=== PATIENT | male | born 1985 | race Caucasian/White ===

== ENCOUNTER 2017-09-15 08:10 | Emergency (ER) | payer BC ==
[2017-09-15] MEDS ORDERED: KETOROLAC 30 MG/ML 1 ML VIAL IM STA (08:25)
[2017-09-15] MEDS ORDERED: DIAZEPAM 5 MG/ML 2 ML INJ IM ONE (08:25)
--- NOTE | 2017-09-15 08:30 | ED ---
General Adult HPI - General Chief complaint: Back Pain/Injury Stated complaint: Back Injury Time Seen by Provider: 09/15/17 08:22 Source: patient, RN notes reviewed, old records reviewed Mode of arrival: ambulatory Limitations: no limitations - History of Present Illness Initial comments: 32-year-old male presenting with right-sided low back pain. Patient has had pain similar to this in the past which was associated with a heavy lifting injury. He states he does not have pain at baseline. No history of chronic back pain. He was wrestling with his dog yesterday and developed this right- sided back pain. No specific fall or trauma. His had worsening pain over the past 12 hours. He did take 600 mg Motrin with minimal relief. Denies any difficulty urinating denies any sensory changes to the lower extremities. He denies weakness in the legs, does state that the pain is worse with standing. No loss of stool or urinary incontinence. - Related Data Home Medications Medication Instructions Recorded Confirmed Ibuprofen [Motrin Ib] 600 mg PO ONCE PRN 09/15/17 09/15/17 Previous Rx's Medication Instructions Recorded Ibuprofen [Motrin] 600 mg PO Q8HR PRN #24 tab 09/15/17 Allergies Allergy/AdvReac Type Severity Reaction Status Date / Time No Known Allergies Allergy Verified 09/15/17 08:38 Review of Systems ROS Statement: Those systems with pertinent positive or pertinent negative responses have been documented in the HPI. ROS Other: All systems not noted in ROS Statement are negative. Past Medical History Past Medical History: No Reported History History of Any Multi-Drug Resistant Organisms: None Reported Past Surgical History: No Surgical Hx Reported Past Psychological History: No Psychological Hx Reported Smoking Status: Current every day smoker Past Alcohol Use History: None Reported Past Drug Use History: None Reported General Exam Limitations: no limitations General appearance: alert, in no apparent distress Head exam: Present: atraumatic, normocephalic Eye exam: Present: normal appearance, PERRL ENT exam: Present: normal exam Neck exam: Present: normal inspection. Absent: tenderness Respiratory exam: Present: normal lung sounds bilaterally, respiratory distress Cardiovascular Exam: Present: regular rate, normal rhythm GI/Abdominal exam: Present: soft. Absent: distended, tenderness Extremities exam: Present: normal inspection, normal capillary refill. Absent: pedal edema, calf tenderness Back exam: Present: paraspinal tenderness (Right lumbar paravertebral tenderness and muscle spasm). Absent: vertebral tenderness Neurological exam: Present: alert, oriented X3, CN II-XII intact, motor sensory deficit (No sensory changes in the lower extremities, no saddle anesthesia), reflexes normal (2+ patellar reflexes bilaterally) Psychiatric exam: Present: normal affect, normal mood Skin exam: Present: warm, dry, intact. Absent: cyanosis, diaphoretic Course Vital Signs 09/15/17 09/15/17 08:16 09:21 Temperature 97.6 F 97.8 F Pulse Rate 71 72 Respiratory 18 16 Rate Blood Pressure 143/85 127/56 O2 Sat by Pulse 100 98 Oximetry Medical Decision Making - Medical Decision Making 32-year-old male with signs and symptoms of low back strain. X-rays obtained, there is no fracture or acute process. Patient is able to move without difficulty. No alarming features on history or physical exam. He will be prescribed anti-inflammatories and he is given outpatient follow-up. Disposition Clinical Impression: Mechanical back pain, Strain of lumbar region Disposition: HOME SELF-CARE Condition: Good Instructions: Acute Low Back Pain (ED) Prescriptions: Ibuprofen [Motrin] 600 mg PO Q8HR PRN #24 tab PRN Reason: Pain Is patient prescribed a controlled substance at d/c from ED?: No Referrals: None,Stated [Primary Care Provider] - 1-2 days Brianna Read MD [REFERRING] - 1-2 days Time of Disposition: 09:55
--- NOTE | 2017-09-15 09:45 | XR ---
EXAMINATION TYPE: XR lumbar spine 2 or 3V DATE OF EXAM: 09/15/2017 CLINICAL HISTORY: pain TECHNIQUE: Three views of the lumbar spine are submitted. COMPARISON: 08/12/2012 FINDINGS: There are 5 lumbar type vertebral bodies identified. Mild curvature convex to the left. The lumbar sp ine shows satisfactory alignment without evidence of acute fracture or dislocation. Vertebral body he ights are within normal limits. Disc spaces are within normal limits. The overlying soft tissue ap pears unremarkable. IMPRESSION: No acute fracture or dislocation is seen in the lumbar spine. ICD 10 NO FRACTURE, INITIAL EVALUATION
[2017-09-15 10:11] VITALS: BP 126/77; PULSE 80; RESP 20; TEMP 97.4
== END 2017-09-15 10:11 | disposition home or self-care (01) ==
LOC: EC 08:10
DX: S39.012A Strain of muscle, fascia and tendon of lower back, initial encounter (principal); F17.200 Nicotine dependence, unspecified, uncomplicated; X50.9XXA Other and unspecified overexertion or strenuous movements or postures, initial encounter; Y93.72 Activity, wrestling
CPT/HCPCS: 72100; 99284; 96372 ×2; J3360; J1885

== ENCOUNTER 2019-07-23 10:29 | Emergency (ER) | payer BC, OTHER ==
[2019-07-23 10:36] VITALS: RESP 18; TEMP 98.5
[2019-07-23] MEDS ORDERED: LIDOCAINE 1% INJ 10MG/ML (20 ML MDV) SQ ONE (10:41)
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
--- NOTE | 2019-07-23 11:29 | CT ---
EXAMINATION TYPE: CT facial bones wo con DATE OF EXAM: 07/23/2019 COMPARISON: None HISTORY: 34-year-old male with facial contusion, Facial Laceration TECHNIQUE: Contiguous axial scanning of the facial bones without IV contrast. Coronal reconstructions performed. CT DLP: 389.8 mGycm Automated exposure control for dose reduction was used. FINDINGS: Leftward nasal septal deviation. Paranasal sinuses and mastoid air cells are clear. The mandible, TMJ's, pterygoid plates, zygomatic arches, nasal bones, and maxilla remain intact. Orbits and globes are intact. Visualized intracranial structures show no gross abnormality IMPRESSION: NO ACUTE FACIAL BONE FRACTURE SEEN. LEFTWARD NASAL SEPTAL DEVIATION.
[2019-07-23 12:15] VITALS: BP 138/69; PULSE 72
== END 2019-07-23 12:16 | disposition home or self-care (01) ==
LOC: EC 10:29
DX: S01.81XA Laceration without foreign body of other part of head, initial encounter (principal); F17.200 Nicotine dependence, unspecified, uncomplicated; W22.8XXA Striking against or struck by other objects, initial encounter; Y99.0 Civilian activity done for income or pay
CPT/HCPCS: 70486; 99283; 12011; J2001

== ENCOUNTER 2019-11-02 07:26 | Emergency (ER) | payer BC, OTHER ==
[2019-11-02] MEDS ORDERED: RX INFO: IV CONTRAST WAS GIVEN 1 EACH MISC MISCELLANE PRN (07:39)
[2019-11-02] MEDS ORDERED: DIPH,PERTUS(ACELL)TETVAC-LF 0.5 ML VIAL IM ONE (07:41)
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
[2019-11-02 08:06] LABS: Basophils # (A) 0.1 k/uL (0-0.2); Basophils % (A) 1 %; Eosinophils # (A) 0.3 k/uL (0-0.7); Eosinophils % (A) 3 %; HCT 45.3 % (39.0-53.0); HGB 14.8 gm/dL (13.0-17.5); Lymphocytes # (A) 2.1 k/uL (1.0-4.8); Lymphocytes % (A) 20 %; MCH 30.4 pg (25.0-35.0); MCHC 32.6 g/dL (31.0-37.0); MCV 93.2 fL (80.0-100.0); Mean Platelet Volume 8.2; Monocytes # (A) 0.8 k/uL (0-1.0); Monocytes % (A) 7 %; Neutrophils % (A) 67 %; Platelet Count 260 k/uL (150-450); RBC 4.86 m/uL (4.30-5.90); RDW 12.9 % (11.5-15.5); WBC 10.5 k/uL (3.8-10.6)
[2019-11-02 08:13] LABS: Partial Thromboplastin Time 24.4 sec (22.0-30.0)
[2019-11-02 08:19] LABS: African American GFR (CKD) >90 (>60 ml/min/1.73 sqM); Anion Gap 6 mmol/L; Blood Urea Nitrogen 8 mg/dL (9-20); Calcium 9.2 mg/dL (8.4-10.2); Carbon Dioxide 27 mmol/L (22-30); Chloride 106 mmol/L (98-107); Glucose 106 mg/dL (74-99); Non-African American GFR(CKD) >90 (>60 ml/min/1.73 sqM); Potassium 3.7 mmol/L (3.5-5.1); Sodium 139 mmol/L (137-145)
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
[2019-11-02] MEDS ORDERED: LIDOCAINE 1%-EPI 1:100,000 20 ML VIAL SQ STA (09:09)
[2019-11-02 09:50] VITALS: BP 144/94; PULSE 94; RESP 18; TEMP 98.4
== END 2019-11-02 09:51 | disposition home or self-care (01) ==
LOC: EC 07:26
DX: S71.132A Puncture wound without foreign body, left thigh, initial encounter (principal); I72.4 Aneurysm of artery of lower extremity; F17.200 Nicotine dependence, unspecified, uncomplicated; W26.0XXA Contact with knife, initial encounter; Y92.69 Other specified industrial and construction area as the place of occurrence of the external cause; Y99.0 Civilian activity done for income or pay
CPT/HCPCS: 36415; 86900; 86901; 80048; 85025; 85610; 85730; 86850; 73706; 90715; 99283; 90471; Q9967

== ENCOUNTER 2022-07-13 09:00 | Emergency (ER) | payer OTHER ==
[2022-07-13 09:04] VITALS: BP 148/106; PULSE 102; RESP 20; TEMP 98.5
[2022-07-13] MEDS ORDERED: IBUPROFEN 600 MG STARTER PACK 4 TAB BTL PO STA (09:10)
[2022-07-13] MEDS ORDERED: ACET/COD 300 MG/30 MG STARTER PACK 6 TAB BTL PO STA (09:10)
--- NOTE | 2022-07-13 09:14 | ED ---
ENT HPI - General Chief complaint: Dental/Oral Stated complaint: facial edema Time Seen by Provider: 07/13/22 09:05 Source: patient, RN notes reviewed Mode of arrival: ambulatory Limitations: no limitations - History of Present Illness Initial comments: This is a 37-year-old male who presents to the emergency department for concerns of a dental abscess. He has started to have increasing pain to the bottom right of his jaw for the last several days. When he woke up this morning, he noticed swelling to that area. States that he has problems with his teeth and recurrent cavities. He has had a dental abscess in the past and states that this feels the same. Pain does improve with ibuprofen. Denies any difficulty breathing. He does not currently have a dentist. Denies any fevers, chills, sore throat, cough, dyspnea, chest pain, palpitations, abdominal pain, nausea, vomiting, diarrhea, back pain, or headaches. MD complaint: tooth pain - Related Data Home Medications Medication Instructions Recorded Confirmed Citalopram Hydrobromide [CeleXA] 40 mg PO DAILY 07/23/19 07/23/19 Previous Rx's Medication Instructions Recorded Cephalexin [Keflex] 500 mg PO Q6HR 5 Days #20 cap 11/02/19 Amoxic-Pot Clav 875-125Mg 1 tab PO BID 10 Days #20 tab 07/13/22 [Augmentin 875-125] Ibuprofen [Motrin] 600 mg PO Q6HR PRN #15 tab 07/13/22 Allergies Allergy/AdvReac Type Severity Reaction Status Date / Time No Known Allergies Allergy Verified 07/13/22 09:04 Review of Systems ROS Statement: Those systems with pertinent positive or pertinent negative responses have been documented in the HPI. ROS Other: All systems not noted in ROS Statement are negative. Past Medical History Past Medical History: No Reported History History of Any Multi-Drug Resistant Organisms: None Reported Past Surgical History: No Surgical Hx Reported Past Psychological History: No Psychological Hx Reported Smoking Status: Current every day smoker Past Alcohol Use History: Daily Past Drug Use History: None Reported General Exam Limitations: no limitations General appearance: alert, in no apparent distress Head exam: Present: atraumatic, normocephalic, normal inspection ENT exam: Present: other (Swelling to the right side of the lower jaw.) Neck exam: Present: normal inspection. Absent: tenderness, meningismus, lymphadenopathy Respiratory exam: Present: normal lung sounds bilaterally. Absent: respiratory distress, wheezes, rales, rhonchi, stridor Cardiovascular Exam: Present: regular rate, normal rhythm, normal heart sounds. Absent: systolic murmur, diastolic murmur, rubs, gallop, clicks Neurological exam: Present: alert, oriented X3, CN II-XII intact Psychiatric exam: Present: normal affect, normal mood Skin exam: Present: warm, dry, intact Course Vital Signs 07/13/22 09:02 Temperature 98.5 F Pulse Rate 102 H Respiratory 20 Rate Blood Pressure 148/106 O2 Sat by Pulse 98 Oximetry Medical Decision Making - Medical Decision Making This is a 37-year-old male who presents to the emergency department for dental pain. Was pt. sent in by a medical professional or institution? @ -No Did you speak to anyone other than the patient for history? @ -No Did you review nursing and triage notes? @ -Yes, and I agree, it is accurate with regards to the patient's symptoms. Were old charts reviewed? @ -No Differential Diagnosis? @ -Differential Dental Pain: Dental abscess, chipped tooth, dental carries, rodrigo's angina, trigeminal neuralgia, this is not meant to be an all-inclusive list. What testing was considered but not performed? (CT, X-rays, U/S, labs)? Why? @ -None What meds were considered but not given? Why? @ -None Did you discuss the management of the patient with other professionals? @ -No Did you reconcile home meds? @ -No Was smoking cessation discussed for >3mins.? @ -I discussed smoking cessation for greater than 3 minutes. The risk of smoking were discussed with the patient including but not limited to risks of cancer, stroke, coronary artery disease and COPD. Also discussed with patient were multiple methods of quitting smoking. Lastly we discussed the financial cost of smoking. Was critical care preformed (if so, how long)? @ -No Were there social determinants of health that impacted care today? How? (Homelessness, low income, unemployed, alcoholism, drug addiction, transportation, low edu. Level, literacy, decrease access to med. care, shelter, rehab)? @ -No Was there de-escalation of care discussed even if they declined? (Discuss DNR or withdrawal of care, Hospice)? @ -No What co-morbidities impacted this encounter? (DM, HTN, Smoking, COPD, CAD, Cancer, CVA, Hep., AIDS, mental health diagnosis, sleep apnea, morbid obesity)? @ -Smoking, alcohol use Was patient admitted / discharged? @ -Discharged. Physical examination consistent with a dental abscess. I am unable to palpate any specific areas that I can drain. Prescription for Augmentin and ibuprofen provided with dosing instructions reviewed. Advised to alternate with the ibuprofen and Tylenol. Patient is encouraged to stop smoking and we discussed that this will contribute to worsening dental health. Dental hygiene was also discussed and regular brushing was encouraged. He is instructed to become established with a dentist for definitive management of the abscess and multiple dental caries. Undiagnosed new problem with uncertain prognosis? @ -None Drug Therapy requiring intensive monitoring for toxicity (Heparin, Nitro, Insulin, Cardizem)? @ -None Were any procedures done? @ -None Diagnosis/symptom? @ -Dental Abscess Acute, or Chronic, or Acute on Chronic? @ -Acute Uncomplicated (without systemic symptoms) or Complicated (systemic symptoms)? @ -Uncomplicated Side effects of treatment? @ -None Exacerbation, Progression, or Severe Exacerbation] @ -Not applicable Poses a threat to life or bodily function? @ -No Return precautions reviewed in depth, the patient is instructed to return to the emergency department with any new, worsening, or concerning symptoms. Patient verbalized understanding. This case was discussed in detail with the attending ED physician, Dr. Thomas. Presentation, findings, and treatment plan discussed in detail as well. Disposition Clinical Impression: Dental abscess Disposition: HOME SELF-CARE Instructions (If sedation given, give patient instructions): Dental Abscess (ED) Additional Instructions: Return to the emergency department with any new, worsening, or concerning symptoms. Take the antibiotic as prescribed for 10 days. Alternate with ibuprofen and Tylenol as needed for pain relief. You can take [id number] ibuprofen or picker box operator the prescription that was sent to your pharmacy so you do not have to take as many tablets at once. Try to become established with a dentist for definitive management of the abscess. Follow up with your primary care provider in 1-2 days. Prescriptions: Amoxic-Pot Clav 875-125Mg [Augmentin 875-125] 1 tab PO BID 10 Days #20 tab Ibuprofen [Motrin] 600 mg PO Q6HR PRN #15 tab PRN Reason: Pain Is patient prescribed a controlled substance at d/c from ED?: No Referrals: None,Stated [Primary Care Provider] - 1-2 days
== END 2022-07-13 10:03 | disposition home or self-care (01) ==
LOC: EC 09:00
DX: K04.7 Periapical abscess without sinus (principal); F17.200 Nicotine dependence, unspecified, uncomplicated
CPT/HCPCS: 99282

== ENCOUNTER 2022-07-29 10:40 | Inpatient (IN) | payer OTHER ==
[2022-07-29 12:30] LABS: ALT 31 U/L (4-49); AST 28 U/L (17-59); African American GFR (CKD) >90 (>60 ml/min/1.73 sqM); Alkaline Phosphatase 78 U/L (38-126); Amylase 71 U/L (30-110); Anion Gap 8 mmol/L; Blood Urea Nitrogen 10 mg/dL (9-20); Calcium 9.7 mg/dL (8.4-10.2); Carbon Dioxide 31 mmol/L (22-30); Chloride 104 mmol/L (98-107); Glucose 91 mg/dL (74-99); Non-African American GFR(CKD) >90 (>60 ml/min/1.73 sqM); Potassium 4.3 mmol/L (3.5-5.1); Sodium 143 mmol/L (137-145); Total Bilirubin 0.3 mg/dL (0.2-1.3); Total Protein 7.1 g/dL (6.3-8.2)
[2022-07-29 12:31] LABS: Lipase 412 U/L (23-300)
--- NOTE | 2022-07-29 12:40 | CT ---
EXAMINATION TYPE: CT abdomen pelvis w con DATE OF EXAM: 07/29/2022 COMPARISON: NONE HISTORY: 37-year-old male LLQ abdominal pain TECHNIQUE: Contiguous axial scanning of the abdomen and pelvis following administration of 100 ml Iso jon 300 IV contrast. Delayed images through the kidneys and coronal/sagittal reconstructions perform ed. CT DLP: 1088.2 mGycm Automated exposure control for dose reduction was used. FINDINGS: Heart normal size without pericardial effusion. Couple 5 mm and smaller hypodensities within the liver too small to accurately characterize, likely t iny cysts. Portal venous system is patent. No biliary ductal dilatation. Gallbladder, adrenal glands, kidneys, spleen, and pancreas within normal limits. No dilated small bowel. Some scattered prominent fluid-filled small bowel loops are present in the ab domen. Normal appendix. There is mild overall stool. Sigmoid diverticulosis. There is edematous wall thickening along the mid sigmoid colon with an adjace nt extraluminal air pocket measuring 5.7 x 4.4 x 2.0 cm. Associated mild to moderate fat stranding an d trace pelvic free fluid. An additional tiny focus of free air measuring 1 cm behind the body/tail of the pancreas. Bladder nondistended. There is mild circumferential wall thickening that could represent some reactiv e inflammation. No pelvic lymphadenopathy. Mild degenerative disc disease lower lumbar spine. There is a chronic appearing wedge compression deformity of T11 which should be correlated clinically . No surrounding inflammation seen. This is new from the 09/15/2017 exam. IMPRESSION: 1. EXAM POSITIVE FOR ACUTE SIGMOID DIVERTICULITIS WITH MILD TO MODERATE INFLAMMATION. HOWEVER, THIS I S COMPLICATED WITH A LOCALIZED PERFORATION AND AN ADJACENT 5.7 CM EXTRALUMINAL AIR POCKET. NO drainab le abscess. An additional small 1 cm focus of free air behind the body/tail of the pancreas. 2. A secondary mild small bowel ileus. Circumferential bladder wall thickening could be reactive to t he sigmoid diverticulitis or could represent cystitis. Clinically correlate. 3. Anterior wedge deformity with compression fracture of T11 has a chronic appearance but is new from 2018. Clinically correlate.
--- NOTE | 2022-07-29 12:41 | ED ---
Abdominal Pain HPI - General Chief Complaint: Abdominal Pain Stated Complaint: ABD pain Time Seen by Provider: 07/29/22 11:07 Source: patient, RN notes reviewed Mode of arrival: ambulatory Limitations: no limitations - History of Present Illness Initial Comments: Patient is a 37-year-old male presenting to the emergency room with complaints of abdominal pain and changes in stool color. He reports that he was having abdominal pain which is slightly improved today along with associated nausea without vomiting ongoing for approximately 4 days. He denies any vomiting at this time and reports that he had a normal bowel movement today. On exam he does have left lower quadrant tenderness but denies any history of diverticulitis or diverticulosis. He was recently prescribed antibiotics for a dental infection on July 13 and some of his GI symptoms occurred while taking this medication consequently he stopped taking it. He denies any other symptoms including any chest pain, shortness of breath, diarrhea, bloody stool, hematuria, dysuria, headache, dizziness, fevers or chills. With the exception of his previous dental abscess history he has no significant past medical history. - Related Data Home Medications Medication Instructions Recorded Confirmed No Known Home Medications 07/29/22 07/29/22 Allergies Allergy/AdvReac Type Severity Reaction Status Date / Time No Known Allergies Allergy Verified 07/29/22 13:29 Review of Systems ROS Statement: Those systems with pertinent positive or pertinent negative responses have been documented in the HPI. ROS Other: All systems not noted in ROS Statement are negative. Past Medical History Past Medical History: No Reported History History of Any Multi-Drug Resistant Organisms: None Reported Past Surgical History: No Surgical Hx Reported Past Psychological History: No Psychological Hx Reported Smoking Status: Current every day smoker Past Alcohol Use History: Daily Past Drug Use History: Marijuana General Exam Limitations: no limitations General appearance: alert, in no apparent distress Head exam: Present: atraumatic, normocephalic, normal inspection Eye exam: Present: normal appearance, PERRL, EOMI. Absent: scleral icterus, conjunctival injection, periorbital swelling ENT exam: Present: normal exam, mucous membranes moist Neck exam: Present: normal inspection Respiratory exam: Present: normal lung sounds bilaterally. Absent: respiratory distress, wheezes, rales, rhonchi, stridor Cardiovascular Exam: Present: regular rate, normal rhythm, normal heart sounds. Absent: systolic murmur, diastolic murmur, rubs, gallop, clicks GI/Abdominal exam: Present: soft, tenderness (LLQ), normal bowel sounds. Absent: distended, guarding, rebound, rigid Rectal exam: Present: deferred Extremities exam: Present: normal inspection. Absent: pedal edema, joint swelling Back exam: Present: normal inspection Neurological exam: Present: alert, oriented X3, CN II-XII intact Psychiatric exam: Present: normal affect, normal mood Skin exam: Present: warm, dry, intact, normal color. Absent: rash Course Vital Signs 07/29/22 07/29/22 10:42 13:13 Temperature 98.1 F 98.4 F Pulse Rate 104 H 90 Respiratory 18 16 Rate Blood Pressure 140/98 142/97 O2 Sat by Pulse 98 98 Oximetry Medical Decision Making - Medical Decision Making Was pt. sent in by a medical professional or institution (, PA, HEALTH EDUCATION ASSISTANT, urgent care, hospital, or retirement...) When possible be specific @ -No Did you speak to anyone other than the patient for history (EMS, parent, family, police, friend...)? What history was obtained from this source @ -No Did you review nursing and triage notes (agree or disagree)? Why? @ -I reviewed and agree with nursing and triage notes Were old charts reviewed (outside hosp., previous admission, EMS record, old EKG, old radiological studies, urgent care reports/EKG's, retirement records)? Report findings @ -No old charts were reviewed Differential Diagnosis (chest pain, altered mental status, abdominal pain women, abdominal pain men, vaginal bleeding, weakness, fever, dyspnea, syncope, headache, dizziness, GI bleed, back pain, seizure, CVA, palpatations, mental health, musculoskeletal)? @ -Differential Abdominal Pain Men: Appendicitis, cholecystitis, diverticulosis, ischemic bowel, pancreatitis, hepatitis, UTI, gastroenteritis, AAA, incarcerated hernia, bowel obstruction, constipation, inflammatory bowel, hepatitis, peptic ulcer disease, splenic infarction, perforated viscus, testicular torsion, this is not meant to be an all-inclusive list EKG interpreted by me (3pts min.). @ -None done X-rays interpreted by me (1pt min.). @ -None done CT interpreted by me (1pt min.). @ -CT abdomen and pelvis with contrast: Sigmoid colon thickening with fat stranding and localized extraluminal air pocket per radiologist measuring 5.7 cm. Per radiologist report also notation of a small focal area of possible free air behind the tail of the pancreas. Small bowel ileus is also identified. U/S interpreted by me (1pt. min.). @ -None done What testing was considered but not performed or refused? (CT, X-rays, U/S, labs)? Why? @ -None What meds were considered but not given or refused? Why? @ -None Did you discuss the management of the patient with other professionals (professionals i.e. DrCayden, PA, HEALTH EDUCATION ASSISTANT, lab, RT, psych nurse, social work case manager, metal weigher, teacher, first officer and flight instructor, lining caser)? Give summary @ -Yes, Dr. Puentes regarding CT findings. He is accepting of admission to services advised keep patient nothing by mouth give IV hydration and IV antibiotics. Was smoking cessation discussed for >3mins.? @ -No Was critical care preformed (if so, how long)? @ -No Were there social determinants of health that impacted care today? How? (Homelessness, low income, unemployed, alcoholism, drug addiction, transportation, low edu. Level, literacy, decrease access to med. care, [facility], rehab)? @ -No Was there de-escalation of care discussed even if they declined (Discuss DNR or withdrawal of care, Hospice)? DNR status @ -No What co-morbidities impacted this encounter? (DM, HTN, Smoking, COPD, CAD, Cancer, CVA, ARF, Chemo, Hep., AIDS, mental health diagnosis, sleep apnea, morbid obesity)? @ -None Was patient admitted / discharged? Hospital course, mention meds given and route, prescriptions, significant lab abnormalities, going to OR and other pertinent info. @ -37-year-old male presenting to the emergency room with complaints of abdominal pain nausea and vomiting and stool changes ongoing for approximately 4 days however symptoms had improved today. Due to left lower quadrant tenderness on exam will complete workup for abdominal pain with laboratory studies of CBC, CMP, amylase, lipase along with computed tomography scan of the abdomen and pelvis. Analgesics and antiemetics offered and declined. CMP reveals elevated carbon dioxide 31, lipase elevated at 412 amylase normal 71, liver enzymes normal, renal function normal, remaining electrolytes normal. CBC without abnormalities. Computed tomography scan demonstrates sigmoid colon diverticulitis with localized perforation abscess and concern for free air at the tail of the pancreas approximately 1 cm in diameter. Patient remains hemodynamically stable. Spoke with Dr. Gale regarding findings. He advised to give IV fluid 2 L boluses along with IV antibiotics keep patient nothing by mouth and admit patient to his services. Will admit patient in stable condition for sigmoid diverticulitis with perforation to medical surgical unit under Dr. Gale. Undiagnosed new problem with uncertain prognosis? @ -No Drug Therapy requiring intensive monitoring for toxicity (Heparin, Nitro, Insulin, Cardizem)? @ -No Were any procedures done? @ -No Diagnosis/symptom? @ -Sigmoid diverticulitis with perforation Acute, or Chronic, or Acute on Chronic? @ -Acute Uncomplicated (without systemic symptoms) or Complicated (systemic symptoms)? @ -Complicated Side effects of treatment? @ -No Exacerbation, Progression, or Severe Exacerbation? @ -No Poses a threat to life or bodily function? How? (Chest pain, [place], [place], pneumonia, PE, COPD, DKA, ARF, appy, cholecystitis, CVA, Diverticulitis, Homicidal, Suicidal, threat to staff... and all critical care pts) @ -Yes risk for septic shock and . Case discussed with Dr. Sebastian. - Lab Data Result diagrams: 07/29/22 10:44 07/29/22 10:44 Lab Results 07/29/22 07/29/22 07/29/22 Range/Units 10:44 10:44 13:13 WBC 7.5 (3.8-10.6) k/uL RBC 4.80 (4.30-5.90) m/uL Hgb 14.4 (13.0-17.5) gm/dL Hct 42.5 (39.0-53.0) % MCV 88.5 (80.0-100.0) fL MCH 30.0 (25.0-35.0) pg MCHC 33.9 (31.0-37.0) g/dL RDW 13.3 (11.5-15.5) % Plt Count 426 (150-450) k/uL MPV 8.9 Neutrophils % 61 % Lymphocytes % 26 % Monocytes % 7 % Eosinophils % 3 % Basophils % 1 % Neutrophils # 4.6 (1.3-7.7) k/uL Lymphocytes # 1.9 (1.0-4.8) k/uL Monocytes # 0.5 (0-1.0) k/uL Eosinophils # 0.3 (0-0.7) k/uL Basophils # 0.0 (0-0.2) k/uL Sodium 143 (137-145) mmol/L Potassium 4.3 (3.5-5.1) mmol/L Chloride 104 (98-107) mmol/L Carbon Dioxide 31 H (22-30) mmol/L Anion Gap 8 mmol/L BUN 10 (9-20) mg/dL Creatinine 0.68 (0.66-1.25) mg/dL Est GFR (CKD-EPI)AfAm >90 (>60 ml/min/1.73 sqM) Est GFR (CKD-EPI)NonAf >90 (>60 ml/min/1.73 sqM) Glucose 91 (74-99) mg/dL Plasma Lactic Acid Naihd 0.8 (0.7-2.0) mmol/L Calcium 9.7 (8.4-10.2) mg/dL Total Bilirubin 0.3 (0.2-1.3) mg/dL AST 28 (17-59) U/L ALT 31 (4-49) U/L Alkaline Phosphatase 78 (38-126) U/L Total Protein 7.1 (6.3-8.2) g/dL Albumin 4.0 (3.5-5.0) g/dL Amylase 71 (30-110) U/L Lipase 412 H (23-300) U/L Disposition Clinical Impression: Perforation of sigmoid colon due to diverticulitis, Sigmoid diverticulitis Disposition: ADMITTED IP TO THIS [facility] Condition: Stable Referrals: None,Stated [Primary Care Provider] - 1-2 days Time of Disposition: 13:18
[2022-07-29 13:07] LABS: Basophils % (A) 1 %; Eosinophils # (A) 0.3 k/uL (0-0.7); Eosinophils % (A) 3 %; HCT 42.5 % (39.0-53.0); HGB 14.4 gm/dL (13.0-17.5); Lymphocytes # (A) 1.9 k/uL (1.0-4.8); Lymphocytes % (A) 26 %; MCHC 33.9 g/dL (31.0-37.0); MCV 88.5 fL (80.0-100.0); Mean Platelet Volume 8.9; Monocytes # (A) 0.5 k/uL (0-1.0); Monocytes % (A) 7 %; Neutrophils # (A) 4.6 k/uL (1.3-7.7); Neutrophils % (A) 61 %; Platelet Count 426 k/uL (150-450); RDW 13.3 % (11.5-15.5); WBC 7.5 k/uL (3.8-10.6)
[2022-07-29] MEDS ORDERED: PIPERACILLIN-TAZOBACTAM 3.375 GM in SODIUM CHLORIDE 0.9% 100 ML IVPB STA (13:17)
[2022-07-29] MEDS ORDERED: SODIUM CHLORIDE 0.9% 1,000 ML IV STA ×3 (13:18→13:29)
[2022-07-29] MEDS ORDERED: MORPHINE SULFATE 4 MG/ML SYRINGE IV PRN (13:30)
[2022-07-29] MEDS ORDERED: NALOXONE 0.4 MG/ML 1 ML VIAL IV PRN (13:30)
[2022-07-29] MEDS ORDERED: ONDANSETRON 4 MG/2 ML VIAL IVP PRN (13:30)
[2022-07-29] MEDS: SODIUM CHLORIDE 0.9% 1,000 ML IV SCH (14:11)
[2022-07-29] MEDS: NICOTINE 21MG/24HR PATCH TRANSDERM SCH (14:19)
--- NOTE | 2022-07-29 14:30 | P.GSHP ---
History of Present Illness H&P Date: 07/29/22 CHIEF COMPLAINT: Abdominal pain HISTORY OF PRESENT ILLNESS: This is a 37-year-old male who presents to hospital with complaints of left lower quadrant abdominal pain that started 4 days ago. First 2 days of pain he was having nausea and vomiting. His pain has improved. He has had no prior history of diverticulitis or diverticulosis. No prior colonoscopy. His computed tomography scan did show evidence of sigmoid diverticulitis with localized perforation. Patient had mildly tachycardic on a dmission. He denies any medical history except that he does have nicotine dependence, daily marijuana use and he had been daily alcohol use but quit drinking about 3 weeks ago. Patient denies any prior abdominal surgical history. Denies any cardiac history. PAST MEDICAL HISTORY: Chronic back pain with history of spinal fracture. No surgery. PAST SURGICAL HISTORY: See below MEDICATIONS: See below ALLERGIES: See below SOCIAL HISTORY: No illicit drug use. REVIEW OF SYSTEMS: CONSTITUTIONAL: Denies fever or chills. HEENT: Denies blurred vision, vision changes, or eye pain. Denies hemoptysis CARDIOVASCULAR: Denies chest pain or pressure. RESPIRATORY: No shortness of breath. GASTROINTESTINAL: See HPI for pertinent findings HEMATOLOGIC: Denies bleeding disorders. GENITOURINARY: Denies any blood in urine or increased urinary frequency. SKIN: Denies pruitis. Denies rash. PHYSICAL EXAM: VITAL SIGNS: Reviewed GENERAL: Well-developed in no acute distress. ABDOMEN: Soft. Nondistended. Nontender NEUROLOGIC: Alert and oriented. Cranial nerves II through XII grossly intact. LABORATORY DATA: WBC 7.5 HgB 14.4 platelets 426 Sodium 143 potassium is 4.3 creatinine 0.68 Lactic acid 0.8 Total bilirubin 0.3 AST 28 ALT 31 Minimally elevated lipase 412 IMAGING: Computed tomography scan abdomen and pelvis exam positive for acute sigmoid diverticulitis with mild to moderate inflammation. However this is complicated with a localized perforation and an adjacent 5.7 cm extraluminal air pocket. No drainable abscess. An additional small 1 cm focus of free air behind the coreen dy/tail of the pancreas. A secondary mild small bowel ileus. Circumferential bladder wall thickening could be reactive to the sigmoid diverticulitis or could represent cystitis. Clinically correlate. 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 ASSESSMENT: 1. Acute sigmoid diverticulitis with localized perforation 2. Nicotine dependence 3. Daily marijuana use 4. History of daily alcohol use quit 3 weeks ago PLAN: -Continue IV antibiotics -Keep patient nothing by mouth -Continue IV fluid -Continue supportive care -Repeat labs in a.m. -Consult medicine service for medical management -Continue nicotine patch Physician Pill Maker note has been reviewed by physician. Signing provider agrees with the documented findings, assessment, and plan of care. Past Medical History Past Medical History: No Reported History History of Any Multi-Drug Resistant Organisms: None Reported Past Surgical History: No Surgical Hx Reported Past Psychological History: No Psychological Hx Reported Smoking Status: Current every day smoker Past Alcohol Use History: Daily Past Drug Use History: Marijuana Medications and Allergies Home Medications Medication Instructions Recorded Confirmed Type No Known Home Medications 07/29/22 07/29/22 History Allergies Allergy/AdvReac Type Severity Reaction Status Date / Time No Known Allergies Allergy Verified 07/29/22 13:29 Surgical - Exam Vital Signs Temp Pulse Resp BP Pulse Ox 98.1 F 104 H 18 140/98 98 07/29/22 10:42 07/29/22 10:42 07/29/22 10:42 07/29/22 10:42 07/29/22 10:42 Results - Labs 07/29/22 10:44 07/29/22 10:44 Abnormal Lab Results - Last 24 Hours (Table) 07/29/22 Range/Units 10:44 Carbon Dioxide 31 H (22-30) mmol/L Lipase 412 H (23-300) U/L Diabetes panel 07/29/22 Range/Units 10:44 Sodium 143 (137-145) mmol/L Potassium 4.3 (3.5-5.1) mmol/L Chloride 104 (98-107) mmol/L Carbon Dioxide 31 H (22-30) mmol/L BUN 10 (9-20) mg/dL Creatinine 0.68 (0.66-1.25) mg/dL Glucose 91 (74-99) mg/dL Calcium 9.7 (8.4-10.2) mg/dL AST 28 (17-59) U/L ALT 31 (4-49) U/L Alkaline Phosphatase 78 (38-126) U/L Total Protein 7.1 (6.3-8.2) g/dL Albumin 4.0 (3.5-5.0) g/dL Calcium panel 07/29/22 Range/Units 10:44 Calcium 9.7 (8.4-10.2) mg/dL Albumin 4.0 (3.5-5.0) g/dL Pituitary panel 07/29/22 Range/Units 10:44 Sodium 143 (137-145) mmol/L Potassium 4.3 (3.5-5.1) mmol/L Chloride 104 (98-107) mmol/L Carbon Dioxide 31 H (22-30) mmol/L BUN 10 (9-20) mg/dL Creatinine 0.68 (0.66-1.25) mg/dL Glucose 91 (74-99) mg/dL Calcium 9.7 (8.4-10.2) mg/dL Adrenal panel 07/29/22 Range/Units 10:44 Sodium 143 (137-145) mmol/L Potassium 4.3 (3.5-5.1) mmol/L Chloride 104 (98-107) mmol/L Carbon Dioxide 31 H (22-30) mmol/L BUN 10 (9-20) mg/dL Creatinine 0.68 (0.66-1.25) mg/dL Glucose 91 (74-99) mg/dL Calcium 9.7 (8.4-10.2) mg/dL Total Bilirubin 0.3 (0.2-1.3) mg/dL AST 28 (17-59) U/L ALT 31 (4-49) U/L Alkaline Phosphatase 78 (38-126) U/L Total Protein 7.1 (6.3-8.2) g/dL Albumin 4.0 (3.5-5.0) g/dL
[2022-07-29] MEDS: ALPRAZolam 0.25 MG TAB PO PRN (16:11)
[2022-07-29] MEDS: PIPERACILLIN-TAZOBACTAM 3.375 GM in SODIUM CHLORIDE 0.9% 100 ML IVPB SCH ×2 (18:15→23:55)
[2022-07-30] MEDS: SODIUM CHLORIDE 0.9% 1,000 ML IV SCH ×2 (05:24→17:56)
[2022-07-30] MEDS: NICOTINE 21MG/24HR PATCH TRANSDERM SCH (09:44)
[2022-07-30] MEDS: PIPERACILLIN-TAZOBACTAM 3.375 GM in SODIUM CHLORIDE 0.9% 100 ML IVPB SCH ×3 (09:45→23:56)
[2022-07-30 11:10] LABS: Basophils # (A) 0.12 X 10*3/uL (0.00-0.10); Basophils % (A) 1.5 %; Eosinophils # (A) 0.35 X 10*3/uL (0.04-0.35); Eosinophils % (A) 4.3 %; HCT 35.2 % (39.6-50.0); HGB 11.7 g/dL (13.0-17.0); Lymphocytes # (A) 2.37 X 10*3/uL (0.90-5.00); Lymphocytes % (A) 29.3 %; MCH 30.2 pg (27.0-32.0); MCHC 33.2 g/dL (32.0-37.0); MCV 90.7 fL (80.0-97.0); Monocytes # (A) 0.64 X 10*3/uL (0.20-1.00); Monocytes % (A) 7.9 %; NRBC Per 100 WBC 0 /100 WBCS (0.0-0.0); Neutrophils # (A) 4.52 X 10*3/uL (1.80-7.70); Platelet Count 378 X 10*3/uL (140-440); RBC 3.88 X 10*6/uL (4.40-5.60); RDW 13.2 % (11.5-14.5); WBC 8.08 X 10*3/uL (4.50-10.00)
[2022-07-30 11:19] LABS: African American GFR (CKD) 125.1 (60.0-200.0); Anion Gap 10.6 mmol/L (10.00-18.00); BUN/Creat Ratio 8.33 Ratio (12.00-20.00); Blood Urea Nitrogen 7.5 mg/dL (9.0-27.0); Calcium 8.9 mg/dL (8.7-10.3); Carbon Dioxide 25.4 mmol/L (20.0-27.5); Potassium 3.8 mmol/L (3.5-5.5)
--- NOTE | 2022-07-30 11:40 | P.PN ---
Subjective Progress Note Date: 07/30/22 CHIEF COMPLAINT: Abdominal pain HISTORY OF PRESENT ILLNESS: Patient reports no abdominal pain. Denies any nausea vomiting. Afebrile. WBC is 8.08 hgb 11.7 platelets 378 sodium is 144 potassium 3.8 creatinine 0.9 PHYSICAL EXAM: VITAL SIGNS: Reviewed. GENERAL: Well-developed in no acute distress. HEENT: No sclera icterus. Extraocular movements grossly intact. Moist buccal mucosa. Head is atraumatic, normocephalic. ABDOMEN: Soft. Nondistended. Nontender. NEUROLOGIC: Alert and oriented. Cranial nerves II through XII grossly intact. ASSESSMENT: 1. Acute sigmoid diverticulitis with localized perforation 2. Nicotine dependence 3. Daily marijuana use 4. History of daily alcohol use quit 3 weeks ago PLAN: -Advance diet to full liquids -Continue IV antibiotics -Continue IV fluids -Encouraged patient to increase activity level Physician Linoleum Tile Layer note has been reviewed by physician. Signing provider agrees with the documented findings, assessment, and plan of care. Objective - Vital Signs Vital signs: Vital Signs Temp 97.8 F 07/30/22 07:45 Pulse 60 07/30/22 07:45 Resp 17 07/30/22 07:45 BP 126/85 07/30/22 07:45 Pulse Ox 95 07/30/22 07:45 FiO2 Intake & Output 07/29/22 07/30/22 07/30/22 18:59 06:59 18:59 Weight 90.718 kg 90.718 kg Other: # Voids 3 - Labs CBC & Chem 7: 07/30/22 06:14 07/30/22 06:14 Labs: Abnormal Lab Results - Last 24 Hours (Table) 07/29/22 07/30/22 07/30/22 Range/Units 10:44 06:14 06:14 RBC 3.88 L (4.40-5.60) X 10*6/uL Hgb 11.7 L (13.0-17.0) g/dL Hct 35.2 L (39.6-50.0) % Immature Gran # 0.08 H (0.00-0.04) X 10*3/uL Basophils # 0.12 H (0.00-0.10) X 10*3/uL Carbon Dioxide 31 H (22-30) mmol/L BUN 7.5 L (9.0-27.0) mg/dL BUN/Creatinine Ratio 8.33 L (12.00-20.00) Ratio Lipase 412 H (23-300) U/L
[2022-07-30] MEDS: ACETAMINOPHEN TAB 325 MG TAB PO PRN (15:34)
[2022-07-30] MEDS: ALPRAZolam 0.25 MG TAB PO PRN (15:35)
--- NOTE | 2022-07-30 16:40 | P.CONS ---
History of Present Illness - Reason for Consult Consult date: 07/30/22 - History of Present Illness This is a 37 year old male medical history of hypertension, anxiety, daily smoker. Patient presents to the with left lower quadrant abdominal pain onset 4 days ago. He reports experiencing fever and chills also. He has some lower abdominal pain and cramping. No shortness of breath, no chest pain, no bloody stool. No melena. Patient had abdominal pelvis CT completed in the which shows acute sigmoid diverticulitis with mild to moderate inflammation. There was a localized perforation and an adjacent 5.7 cm extraluminal air pocket. No drainable abscess. Additional small 1 cm focus of free air behind the body/tail of the pancreas. There is secondary small bowel ileus. Circumferential bladder wall thickening could be reactive to sigmoid diverticulitis or could represent cystitis. Anterior wedge deformity with compression fracture of T11 has a chronic appearance new from 2018. Patient reports this is known and he opted to not have surgical intervention in the past for this. He reports daily marijuana use. He is admitted under general surgery and has been started on empiric antibi otics with bowel rest. REVIEW OF SYSTEMS: CONSTITUTIONAL: No fever, no malaise, no fatigue. HEENT: No recent visual problems or hearing problems. Denied any sore throat. CARDIOVASCULAR: No chest pain, orthopnea, PND, no palpitations, no syncope. PULMONARY: No shortness of breath, no cough, no hemoptysis. GASTROINTESTINAL: No diarrhea, no nausea, no vomiting, no abdominal pain. NEUROLOGICAL: No headaches, no weakness, no numbness. HEMATOLOGICAL: Denies any bleeding or petechiae. GENITOURINARY: Denies any burning micturition, frequency, or urgency. MUSCULOSKELETAL/RHEUMATOLOGICAL: Denies any joint pain, swelling, or any muscle pain. ENDOCRINE: Denies any polyuria or polydipsia. The rest of the 14-point review of systems is negative. PHYSICAL EXAMINATION: GENERAL: The patient is alert and oriented x3, not in any acute distress. Well developed, well nourished. HEENT: Pupils are round and equally reacting to light. EOMI. No scleral icterus. No conjunctival pallor. Normocephalic, atraumatic. No pharyngeal erythema. No thyromegaly. CARDIOVASCULAR: S1 and S2 present. No murmurs, rubs, or gallops. PULMONARY: Chest is clear to auscultation, no wheezing or crackles. ABDOMEN: Soft, LLQ tenderness, nondistended, normoactive bowel sounds. No palpable organomegaly. MUSCULOSKELETAL: No joint swelling or deformity. EXTREMITIES: No cyanosis, clubbing, or pedal edema. NEUROLOGICAL: Gross neurological examination did not reveal any focal deficits. SKIN: No rashes. Assessment and Plan Acute sigmoid diverticulitis with localized perforation Small bowel ileus Chronic back pain with known fracture Anterior wedge deformity and compression fracture to T11 History of hypertension History of anxiety History of nicotine dependence Daily marijuana use GI prophylaxis DVT prophylaxis Full Code Plan Continue IV antibiotics and IV fluids Bowel Rest Resume appropriate home medications Thank you kindly for this consultation The impression and plan of care has been dictated by Nettie Cotter Nurse Practitioner as directed. Dr. Hector MD I have performed a history and physical examination and medical decision making of this patient, discussed the same with the dictator, and agree with the dictators assessment and plan as written, documented as a scribe. Based on total visit time, I have performed more than 50% of this visit. Past Medical History Past Medical History: Hypertension History of Any Multi-Drug Resistant Organisms: None Reported Past Surgical History: Adenoidectomy, Tonsillectomy Past Anesthesia/Blood Transfusion Reactions: No Reported Reaction Past Psychological History: Anxiety Smoking Status: Current every day smoker Past Alcohol Use History: Daily Past Drug Use History: Marijuana Medications and Allergies Home Medications Medication Instructions Recorded Confirmed Type No Known Home Medications 07/29/22 07/29/22 History Allergies Allergy/AdvReac Type Severity Reaction Status Date / Time No Known Allergies Allergy Verified 07/29/22 13:29 Physical Exam Vitals: Vital Signs Temp Pulse Pulse Resp BP BP Pulse Ox 07/30/22 07:45 97.8 F 60 17 126/85 95 07/30/22 02:00 97.9 F 57 L 17 134/88 95 07/30/22 01:00 56 L 16 126/101 98 07/30/22 00:00 55 L 16 115/89 98 07/29/22 23:53 69 16 130/97 97 07/29/22 22:00 62 20 130/97 07/29/22 20:00 68 16 126/90 98 07/29/22 19:57 98 F 86 20 130/98 99 07/29/22 18:17 58 L 20 131/100 98 07/29/22 16:04 72 20 140/100 98 07/29/22 13:13 98.4 F 90 16 142/97 98 07/29/22 10:42 98.1 F 104 H 18 140/98 98 Intake and Output 07/29/22 07/30/22 07/30/22 22:59 06:59 14:59 Other: # Voids 3 Weight 90.718 kg Results CBC & Chem 7: 07/30/22 06:14 07/30/22 06:14 Labs: Abnormal Lab Results - Last 24 Hours (Table) 07/29/22 Range/Units 10:44 Carbon Dioxide 31 H (22-30) mmol/L Lipase 412 H (23-300) U/L Assessment and Plan Time with Patient: Less than 30
[2022-07-31] MEDS: ACETAMINOPHEN TAB 325 MG TAB PO PRN (03:57)
[2022-07-31] MEDS: NICOTINE 21MG/24HR PATCH TRANSDERM SCH (09:15)
[2022-07-31] MEDS: PANTOPRAZOLE 40 MG/10 ML VIAL IVP SCH (09:15)
[2022-07-31] MEDS: PIPERACILLIN-TAZOBACTAM 3.375 GM in SODIUM CHLORIDE 0.9% 100 ML IVPB SCH ×2 (09:16→15:43)
[2022-07-31] MEDS ORDERED: ASPIRIN-ACET-CAFF 250-250-65MG 1 EACH TAB PO PRN ×2 (11:15→12:48)
--- NOTE | 2022-07-31 13:14 | P.PN ---
Subjective Progress Note Date: 07/31/22 This is a 37 year old male medical history of hypertension, anxiety, daily smoker. Patient presents to the with left lower quadrant abdominal pain onset 4 days ago. He reports experiencing fever and chills also. He has some lower abdominal pain and cramping. No shortness of breath, no chest pain, no bloody stool. No melena. Patient had abdominal pelvis CT completed in the which shows acute sigmoid diverticulitis with mild to moderate inflammation. There was a localized perforation and an adjacent 5.7 cm extraluminal air pocket. No drainable abscess. Additional small 1 cm focus of free air behind the body/tail of the pancreas. There is secondary small bowel ileus. Circumferential bladder wall thickening could be reactive to sigmoid diverticulitis or could represent cystitis. Anterior wedge deformity with compression fracture of T11 has a chronic appearance new from 2018. Patient reports this is known and he opted to not have surgical intervention in the past for this. He reports daily marijuana use. He is admitted under general surgery and has been started on empiric antibiotics with bowel rest. 07/31/2022 Patient is evaluated today ambulating in room. No acute events overnight. Denies abdominal pain, abdomen is soft and nontender, patient reports having BM yesterday. No fever or chills. He remains on IV antibiotics and IV fluids. Review of Systems Constitutional: Denied any fatigue denied any fever. Cardio vascular: denied any chest pain, palpitations Gastrointestinal: denied any nausea, vomiting, diarrhea Pulmonary: Denied any shortness of breath cough Neurologic denied any new focal deficits All inpatient medications were reviewed and appropriate changes in these m edications as dictated in the interval history and assessment and plan. PHYSICAL EXAMINATION: GENERAL: The patient is alert and oriented x3, not in any acute distress. Well developed, well nourished. HEENT: Pupils are round and equally reacting to light. EOMI. No scleral icterus. No conjunctival pallor. Normocephalic, atraumatic. No pharyngeal erythema. No thyromegaly. CARDIOVASCULAR: S1 and S2 present. No murmurs, rubs, or gallops. PULMONARY: Chest is clear to auscultation, no wheezing or crackles. ABDOMEN: Soft, LLQ tenderness, nondistended, normoactive bowel sounds. No palpable organomegaly. MUSCULOSKELETAL: No joint swelling or deformity. EXTREMITIES: No cyanosis, clubbing, or pedal edema. NEUROLOGICAL: Gross neurological examination did not reveal any focal deficits. SKIN: No rashes. Assessment and Plan Acute sigmoid diverticulitis with localized perforation Small bowel ileus Chronic back pain with known fracture Anterior wedge deformity and compression fracture to T11 History of hypertension History of anxiety History of nicotine dependence Daily marijuana use GI prophylaxis DVT prophylaxis Full Code Plan Continue IV antibiotics and IV fluids Bowel Rest Resume appropriate home medications Patient medically is doing well and can be discharged home when cleared by primary Thank you kindly for this consultation The impression and plan of care has been dictated by Nettie Cotter Nurse Practitioner as directed. Dr. Hector MD I have performed a history and physical examination and medical decision making of this patient, discussed the same with the dictator, and agree with the dictators assessment and plan as written, documented as a scribe. Based on total visit time, I have performed more than 50% of this visit. Objective - Vital Signs Vital signs: Vital Signs Temp 98.1 F 07/31/22 07:57 Pulse 57 L 07/31/22 07:57 Resp 16 07/31/22 08:37 BP 122/85 07/31/22 07:57 Pulse Ox 98 07/31/22 07:57 FiO2 Intake & Output 07/30/22 07/31/22 07/31/22 18:59 06:59 18:59 Intake Total 700 Balance 700 Intake: Intake, IV Titration 700 Amount Piperacillin-Tazobactam 3 100 .375 gm In Sodium Chloride 0.9% 100 ml @ 25 mls/hr IVPB Q8HR [facility] Rx# :[id number] Sodium Chloride 0.9% 1, 600 000 ml @ 75 mls/hr IV . [id number] [facility] Rx#:[id number] Other: Voiding Method Toilet Toilet Toilet # Voids 3 2 - Labs CBC & Chem 7: 07/30/22 06:14 07/30/22 06:14 Labs: Microbiology - Last 24 Hours (Table) 07/29/22 13:05 Blood Culture - Preliminary Blood No Growth after 24 hours 07/29/22 13:14 Blood Culture - Preliminary Blood No Growth after 24 hours Assessment and Plan Time with Patient: Less than 30
--- NOTE | 2022-07-31 14:43 | P.PN ---
Subjective Progress Note Date: 07/31/22 CHIEF COMPLAINT: Abdominal pain HISTORY OF PRESENT ILLNESS: Patient reports no abdominal pain. Denies any nausea vomiting. He is tolerating full liquids. He did have a loose bowel movement today. No blood in stool. Afebrile. No new labs. Patient seen and examined with Dr. bender PHYSICAL EXAM: VITAL SIGNS: Reviewed. GENERAL: Well-developed in no acute distress. HEENT: No sclera icterus. Extraocular movements grossly intact. Moist buccal mucosa. Head is atraumatic, normocephalic. ABDOMEN: Soft. Nondistended. Nontender. NEUROLOGIC: Alert and oriented. Cranial nerves II through XII grossly intact. ASSESSMENT: 1. Acute sigmoid diverticulitis with localized perforation 2. Nicotine dependence 3. Daily marijuana use 4. History of daily alcohol use quit 3 weeks ago PLAN: -Recommend another 24 hours of IV antibiotics -Continue full liquids -Encouraged patient to increase activity level -Anticipate discharge tomorrow Physician Sat Tutor note has been reviewed by physician. Signing provider agrees with the documented findings, assessment, and plan of care. Objective - Vital Signs Vital signs: Vital Signs Temp 98.1 F 07/31/22 07:57 Pulse 57 L 07/31/22 07:57 Resp 16 07/31/22 08:37 BP 122/85 07/31/22 07:57 Pulse Ox 98 07/31/22 07:57 FiO2 Intake & Output 07/30/22 07/31/22 07/31/22 18:59 06:59 18:59 Intake Total 700 Balance 700 Intake: Intake, IV Titration 700 Amount Piperacillin-Tazobactam 3 100 .375 gm In Sodium Chloride 0.9% 100 ml @ 25 mls/hr IVPB Q8HR [facility] Rx# :[id number] Sodium Chloride 0.9% 1, 600 000 ml @ 75 mls/hr IV . [id number] [facility] Rx#:[id number] Other: Voiding Method Toilet Toilet Toilet # Voids 3 2 - Labs CBC & Chem 7: 07/30/22 06:14 07/30/22 06:14 Labs: Microbiology - Last 24 Hours (Table) 07/29/22 13:05 Blood Culture - Preliminary Blood No Growth after 24 hours 07/29/22 13:14 Blood Culture - Preliminary Blood No Growth after 24 hours
[2022-07-31] MEDS: SODIUM CHLORIDE 0.9% 1,000 ML IV SCH ×2 (15:45→20:57)
[2022-08-01] MEDS: PIPERACILLIN-TAZOBACTAM 3.375 GM in SODIUM CHLORIDE 0.9% 100 ML IVPB SCH ×2 (00:05→08:04)
[2022-08-01] MEDS: NICOTINE 21MG/24HR PATCH TRANSDERM SCH (08:03)
[2022-08-01] MEDS: PANTOPRAZOLE 40 MG/10 ML VIAL IVP SCH (08:04)
[2022-08-01] MEDS: SODIUM CHLORIDE 0.9% 1,000 ML IV SCH (08:04)
[2022-08-01 08:41] VITALS: BP 141/95; PULSE 57; RESP 12; TEMP 97.8
[2022-08-01 11:09] LABS: Basophils # (A) 0.11 X 10*3/uL (0.00-0.10); Basophils % (A) 1.1 %; Eosinophils # (A) 0.28 X 10*3/uL (0.04-0.35); Eosinophils % (A) 2.7 %; HCT 38.6 % (39.6-50.0); Immature Grans, Automated 0.5 %; Lymphocytes # (A) 2.28 X 10*3/uL (0.90-5.00); Lymphocytes % (A) 21.8 %; MCH 30.1 pg (27.0-32.0); MCHC 33.7 g/dL (32.0-37.0); MCV 89.4 fL (80.0-97.0); Mean Platelet Volume 10.2 fL (9.5-12.2); Monocytes # (A) 0.81 X 10*3/uL (0.20-1.00); Monocytes % (A) 7.7 %; NRBC Per 100 WBC 0 /100 WBCS (0.0-0.0); Neutrophils # (A) 6.94 X 10*3/uL (1.80-7.70); Neutrophils % (A) 66.2 %; Platelet Count 411 X 10*3/uL (140-440); RBC 4.32 X 10*6/uL (4.40-5.60); WBC 10.47 X 10*3/uL (4.50-10.00)
[2022-08-01 11:19] LABS: African American GFR (CKD) 119.5 (60.0-200.0); Anion Gap 12.9 mmol/L (10.00-18.00); BUN/Creat Ratio 7.63 Ratio (12.00-20.00); Blood Urea Nitrogen 7.1 mg/dL (9.0-27.0); Calcium 9.4 mg/dL (8.7-10.3); Carbon Dioxide 23.9 mmol/L (20.0-27.5); Non-African American GFR(CKD) 103.1 (60.0-200.0); Potassium 4.3 mmol/L (3.5-5.5)
--- NOTE | 2022-08-01 12:10 | P.PN ---
Subjective Progress Note Date: 08/01/22 This is a 37 year old male medical history of hypertension, anxiety, daily smoker. Patient presents to the with left lower quadrant abdominal pain onset 4 days ago. He reports experiencing fever and chills also. He has some lower abdominal pain and cramping. No shortness of breath, no chest pain, no bloody stool. No melena. Patient had abdominal pelvis CT completed in the which shows acute sigmoid diverticulitis with mild to moderate inflammation. There was a localized perforation and an adjacent 5.7 cm extraluminal air pocket. No drainable abscess. Additional small 1 cm focus of free air behind the body/tail of the pancreas. There is secondary small bowel ileus. Circumferential bladder wall thickening could be reactive to sigmoid diverticulitis or could represent cystitis. Anterior wedge deformity with compression fracture of T11 has a chronic appearance new from 2018. Patient reports this is known and he opted to not have surgical intervention in the past for this. He reports daily marijuana use. He is admitted under general surgery and has been started on empiric antibiotics with bowel rest. 07/31/2022 Patient is evaluated today ambulating in room. No acute events overnight. Denies abdominal pain, abdomen is soft and nontender, patient reports having BM yesterday. No fever or chills. He remains on IV antibiotics and IV fluids. 08/01/2022 Patient resting in bed, ready for discharge. He is being discharged on 10 days of oral antibiotics. He is recommended to establish care with a family provider this is discussed with him. He is referred to the [facility] in the mean time. Review of Systems Constitutional: Denied any fatigue denied any fever. Cardio vascular: denied any chest pain, palpitations Gastrointestinal: denied any nausea, vomiting, diarrhea Pulmonary: Denied any shortness of breath cough Neurologic denied any new focal deficits All inpatient medications were reviewed and appropriate changes in these medications as dictated in the interval history and assessment and plan. PHYSICAL EXAMINATION: GENERAL: The patient is alert and oriented x3, not in any acute distress. Well developed, well nourished. HEENT: Pupils are round and equally reacting to light. EOMI. No scleral icterus. No conjunctival pallor. Normocephalic, atraumatic. No pharyngeal erythema. No thyromegaly. CARDIOVASCULAR: S1 and S2 present. No murmurs, rubs, or gallops. PULMONARY: Chest is clear to auscultation, no wheezing or crackles. ABDOMEN: Soft, LLQ tenderness, nondistended, normoactive bowel sounds. No palpable organomegaly. MUSCULOSKELETAL: No joint swelling or deformity. EXTREMITIES: No cyanosis, clubbing, or pedal edema. NEUROLOGICAL: Gross neurological examination did not reveal any focal deficits. SKIN: No rashes. Assessment and Plan Acute sigmoid diverticulitis with localized perforation Small bowel ileus resolved Chronic back pain with known fracture Anterior wedge deformity and compression fracture to T11 History of hypertension History of anxiety History of nicotine dependence Daily marijuana use GI prophylaxis DVT prophylaxis Full Code Plan Patient cleared for discharge he is given 3 days of xanax as needed and recommended to see a family doctor. Patient medically is doing well and can be discharged home when cleared by augusto foreman He is discharged on 10 days of oral antibiotics, PPI has been added. Thank you kindly for this consultation The impression and plan of care has been dictated by Nettie Cotter, Nurse Practitioner as directed. Dr. Hector MD I have performed a history and physical examination and medical decision making of this patient, discussed the same with the dictator, and agree with the dictators assessment and plan as written, documented as a scribe. Based on total visit time, I have performed more than 50% of this visit. Objective - Vital Signs Vital signs: Vital Signs Temp 97.8 F 08/01/22 08:00 Pulse 57 L 08/01/22 08:00 Resp 12 08/01/22 08:00 BP 141/95 08/01/22 08:00 Pulse Ox 98 08/01/22 02:00 FiO2 Intake & Output 07/31/22 08/01/22 08/01/22 18:59 06:59 18:59 Intake Total 620 Balance 620 Intake: Oral 620 Other: Voiding Method Toilet Toilet # Voids 3 3 1 # Bowel Movements 1 - Labs CBC & Chem 7: 08/01/22 06:39 08/01/22 06:39 Labs: Abnormal Lab Results - Last 24 Hours (Table) 08/01/22 08/01/22 Range/Units 06:39 06:39 WBC 10.47 H (4.50-10.00) X 10*3/uL RBC 4.32 L (4.40-5.60) X 10*6/uL Hct 38.6 L (39.6-50.0) % Immature Gran # 0.05 H (0.00-0.04) X 10*3/uL Basophils # 0.11 H (0.00-0.10) X 10*3/uL BUN 7.1 L (9.0-27.0) mg/dL BUN/Creatinine Ratio 7.63 L (12.00-20.00) Ratio Microbiology - Last 24 Hours (Table) 07/29/22 13:05 Blood Culture - Preliminary Blood No Growth after 48 hours 07/29/22 13:14 Blood Culture - Preliminary Blood No Growth after 48 hours Assessment and Plan Time with Patient: Less than 30
--- NOTE | 2022-08-01 12:39 | P.DS ---
Providers Date of admission: 07/29/22 13:35 Expected date of discharge: 08/01/22 Attending physician: Anderson Gale Consults: 07/29/22 14:29 Consult Physician Routine Consulting Provider: Emerson Gill Consult Reason/Comments: medical management Do you want consulting provider notified?: Yes Primary care physician: Stated None Hospital Course: This is a 29-year-old male who was admitted to the hospital with acute diverticulitis microperforation. Patient was treated with IV and boxes bowel rest. Patient did improve. On the day of discharge his abdomen soft with minimal tenderness. Patient Condition at Discharge: Good Plan - Discharge Summary Discharge Rx Participant: Yes New Discharge Prescriptions: New metroNIDAZOLE [Flagyl] 500 mg PO TID #30 tab Levofloxacin [Levaquin] 500 mg PO DAILY 10 Days #10 tab Pantoprazole [Protonix] 40 mg PO DAILY #14 tab ALPRAZolam [Xanax] 0.25 mg PO BID #6 tab Discharge Medication List Levofloxacin [Levaquin] 500 mg PO DAILY 10 Days #10 tab 07/31/22 [Rx] metroNIDAZOLE [Flagyl] 500 mg PO TID #30 tab 07/31/22 [Rx] ALPRAZolam [Xanax] 0.25 mg PO BID #6 tab 08/01/22 [Rx] Pantoprazole [Protonix] 40 mg PO DAILY #14 tab 08/01/22 [Rx] Follow up Appointment(s)/Referral(s): Brianna Read MD [REFERRING] - 1-2 Days None,Stated [Primary Care Provider] - 1-2 days [facility] [NON-STAFF] - 1-2 Days Anderson Gale MD [STAFF PHYSICIAN] - 1 Week Ambulatory/Diagnostic Orders: Complete Blood Count w/diff [LAB.AMB] Time Frame: 3 Days, Location: None Selected Patient Instructions/Handouts: Diverticulitis (DC), Diverticulitis Diet (DC) Activity/Diet/Wound Care/Special Instructions: *See Data Management for indigent funds for meds at discharge if needed Discharge Disposition: HOME SELF-CARE
== END 2022-08-01 13:42 | disposition home or self-care (01) | DRG 244 ==
LOC: EC 10:40 → 4SSUR 13:35
PROVIDERS: ADMIT Surgery; ATTEND Surgery
DX: K57.20 Diverticulitis of large intestine with perforation and abscess without bleeding (principal); K56.7 Ileus, unspecified; Z28.310 Unvaccinated for COVID-19; G89.29 Other chronic pain; I10 Essential (primary) hypertension; F41.9 Anxiety disorder, unspecified; F17.200 Nicotine dependence, unspecified, uncomplicated; Z71.6 Tobacco abuse counseling; Z87.81 Personal history of (healed) traumatic fracture
CPT/HCPCS: 36415; 74177; 80048; 80053; 82150; 83605; 83690; 85025; 87040; 96365; 96366; 99285

== ENCOUNTER → 2022-08-05 | Outpatient (CLI) | payer OTHER ==
[2022-08-05 16:09] LABS: HCT 39.6 % (39.0-53.0); MCH 29.9 pg (25.0-35.0); MCHC 32.9 g/dL (31.0-37.0); MCV 90.9 fL (80.0-100.0); Platelet Count 422 k/uL (150-450); RBC 4.36 m/uL (4.30-5.90); RDW 13.1 % (11.5-15.5); WBC 8.7 k/uL (3.8-10.6)
== END | disposition home or self-care (01) ==
LOC: LABWHC1 15:38
PROVIDERS: ATTEND Nurse Practitioner Family
DX: D72.829 Elevated white blood cell count, unspecified (principal)
CPT/HCPCS: 36415; 85027

== ENCOUNTER → 2022-09-05 | Outpatient (CLI) | payer OTHER ==
[2022-09-06 01:57] LABS: Basophils # (A) 0.08 X 10*3/uL (0.00-0.10); Eosinophils # (A) 0.36 X 10*3/uL (0.04-0.35); Eosinophils % (A) 4.4 %; HCT 38.8 % (39.6-50.0); HGB 12.3 g/dL (13.0-17.0); Immature Grans, Automated 0.1 %; Lymphocytes # (A) 2.55 X 10*3/uL (0.90-5.00); Lymphocytes % (A) 30.9 %; MCH 29.4 pg (27.0-32.0); MCHC 31.7 g/dL (32.0-37.0); MCV 92.6 fL (80.0-97.0); Mean Platelet Volume 11.5 fL (9.5-12.2); Monocytes # (A) 0.82 X 10*3/uL (0.20-1.00); Monocytes % (A) 9.9 %; NRBC Per 100 WBC 0 /100 WBCS (0.0-0.0); Neutrophils # (A) 4.44 X 10*3/uL (1.80-7.70); Neutrophils % (A) 53.7 %; Platelet Count 263 X 10*3/uL (140-440); RBC 4.19 X 10*6/uL (4.40-5.60); RDW 13.9 % (11.5-14.5); WBC 8.26 X 10*3/uL (4.50-10.00)
[2022-09-06 09:21] LABS: Anion Gap 11.7 mmol/L (10.00-18.00); Carbon Dioxide 26.6 mmol/L (20.0-27.5); Potassium 3.9 mmol/L (3.5-5.5)
== END | disposition home or self-care (01) ==
LOC: LABPAT 15:22
PROVIDERS: ATTEND Surgery
DX: Z01.812 Encounter for preprocedural laboratory examination (principal)
CPT/HCPCS: 36415; 80051; 85025

== ENCOUNTER 2022-09-16 11:14 | Day surgery (SDC) | payer OTHER ==
[2022-09-11 17:25] VITALS: BMI 29.2
[~2022-09-16 11:14] MED LIST: LACTATED RINGERS 1,000 ML IV SCH; LIDOCAINE 1% (10MG/ML) FOR IV START INTRADERMA PRN
[2022-09-16 11:39] VITALS: TEMP 98.2
[2022-09-16] MEDS ORDERED: PROPOFOL 10 MG/ML 20 ML VIAL IV ONE (12:21)
--- NOTE | 2022-09-16 12:36 | P.OP ---
Date of Procedure: 09/16/22 Preoperative Diagnosis: Radiculitis Postoperative Diagnosis: Diverticulitis Procedure(s) Performed: Colonoscopy Anesthesia: MAC Surgeon: Anderson Gale Pathology: none sent Condition: stable Disposition: PACU Description of Procedure: Patient's placed on the endoscopy table in the lateral position. He received IV sedation. Digital rectal exam was performed. This revealed no abnormalities. Flexible colonoscope was then placed patient anus and passed throughout colon. Scope then passed beyond the sigmoid colon secondary to scarring and sigmoid colon. Patient appears history of diverticulitis. At this point scope withdrawn. The visualized sigmoid colon and rectum appeared normal. Scope with drawn for patient. Patient scheduled for low anterior section tomorrow.
[2022-09-16 12:57] VITALS: BP 143/88; PULSE 64; RESP 18
== END 2022-09-16 13:10 | disposition home or self-care (01) ==
LOC: ORWHC2ENDO 11:14
PROVIDERS: ATTEND Surgery
DX: K57.30 Diverticulosis of large intestine without perforation or abscess without bleeding (principal); I10 Essential (primary) hypertension; F12.90 Cannabis use, unspecified, uncomplicated; F17.200 Nicotine dependence, unspecified, uncomplicated; F41.9 Anxiety disorder, unspecified
CPT/HCPCS: 45330; J2704

== ENCOUNTER 2022-09-17 07:45 | Inpatient (IN) | payer OTHER ==
[~2022-09-17 07:45] MED LIST changes: +ACETAMINOPHEN TAB 500 MG TAB PO PRN; +DEXAMETHASONE SOD PHOSPHATE 4 MG/ML 1 ML VIAL IV ONE; +HEPARIN SODIUM,PORCINE/PF 5,000 UNIT/0.5 ML SYRINGE SQ PRN; +HYDROmorphone 0.5 MG/0.5 ML SYRINGE IVP PRN; -LACTATED RINGERS 1,000 ML IV SCH; +MIDAZOLAM 2 MG/2 ML VIAL IV PRN; +ONDANSETRON 4 MG/2 ML VIAL IVP ONE; +metroNIDAZOLE-NS PMX 500 MG in SALINE 1 100ML.BAG IVPB PRN
[2022-09-17] MEDS: LACTATED RINGERS 1,000 ML IV SCH (09:28)
[2022-09-17] MEDS ORDERED: MIDAZOLAM 2 MG/2 ML VIAL IVP ONE (10:01)
--- NOTE | 2022-09-17 10:13 | P.GSHP ---
History of Present Illness H&P Date: 09/17/22 Chief Complaint: History of perforated diverticulitis Is a 29-year-old male with previous history of perforated diverticulitis. Patient resents today for low anterior resection. Past Medical History Past Medical History: Hypertension Additional Past Medical History / Comment(s): DIVERTICULITIS History of Any Multi-Drug Resistant Organisms: None Reported Past Surgical History: Adenoidectomy, Tonsillectomy Past Anesthesia/Blood Transfusion Reactions: No Reported Reaction Additional Past Alcohol Use History / Comment(s): SMOKES 1 PPD SINCE AGE 15. LAST USED ALCOHOL 30 DAYS AGO - Past Family History Father Family Medical History: Cancer Medications and Allergies Home Medications Medication Instructions Recorded Confirmed Type No Known Home Medications 09/11/22 09/16/22 History Allergies Allergy/AdvReac Type Severity Reaction Status Date / Time No Known Allergies Allergy Verified 09/16/22 11:29 Surgical - Exam Vital Signs Temp Pulse Resp BP Pulse Ox 98.4 F 83 18 156/87 99 09/17/22 09:30 09/17/22 09:30 09/17/22 09:30 09/17/22 09:30 09/17/22 09:30 - General well developed, well nourished, no distress - Eyes PERRL - ENT normal pinna - Neck no masses - Respiratory normal expansion - Cardiovascular Rhythm: regular - Abdomen Abdomen: soft, non tender Assessment and Plan Assessment: History of perforated diverticula is. Patient will undergo low anterior section. Patient reversed surgery including possible colostomy, wound infection bleeding.
[2022-09-17] MEDS ORDERED: KETAMINE 10 MG/ML 20 ML VIAL ONE (10:30)
[2022-09-17] MEDS ORDERED: PROPOFOL 10 MG/ML 20 ML VIAL IV ONE (10:30)
[2022-09-17] MEDS ORDERED: MIDAZOLAM 2 MG/2 ML VIAL ONE (10:30)
[2022-09-17] MEDS ORDERED: NEOSTIGMINE 1 MG/ML 10 ML VIAL ONE (10:30)
[2022-09-17] MEDS ORDERED: KETOROLAC 15 MG/ML 1 ML VIAL ONE (10:30)
[2022-09-17] MEDS ORDERED: SUCCINYLCHOLINE CHLORIDE 200 MG/10 ML VIAL IV ONE (10:30)
[2022-09-17] MEDS ORDERED: GLYCOPYRROLATE 0.2 MG/ML 2 ML VIAL ONE (10:30)
[2022-09-17] MEDS ORDERED: fentaNYL (PF) 50 MCG/ML 2 ML AMP ONE (10:30)
[2022-09-17] MEDS ORDERED: ROCURONIUM 10 MG/ML (5 ML VIAL) IV ONE (10:30)
[2022-09-17] MEDS ORDERED: LIDOCAINE 2% INJ 20 MG/ML (2 ML VIAL) ONE (10:30)
[2022-09-17] MEDS ORDERED: NALOXONE 0.4 MG/ML 1 ML VIAL IV PRN (10:46)
--- NOTE | 2022-09-17 10:48 | P.ANPRN ---
Procedure Note - Anesthesia - Epidural/Spinal Epidural Continuous Time Out Performed: Yes Date of Procedure: 09/17/22 Procedure Start Time: 10:00 Procedure Stop Time: 10:09 Location of Patient: PreOp Indication: Acute Post-Operative Pain, Analgesia, Requested by Surgeon Sedation Type: Sedate with meaningful contact maintained Preparation: Sterile Dressing Position: Sitting Catheter: Indwelling Needle Guage: 18 Blood Aspirated: No Pain Paresthesia on Injection Noted: No Events: Uneventful and Well Tolerated (xylo 1.5 plus epi 3cc no adverse effects noted)
[2022-09-17] MEDS ORDERED: METOCLOPRAMIDE 5 MG/ML 2 ML VIAL IVP PRN (11:52)
[2022-09-17] MEDS ORDERED: BENZOCAINE/MENTHOL LOZENG 1 EACH LOZENGE MUCOUS MEM PRN (11:52)
[2022-09-17] MEDS ORDERED: HYDROmorphone 1 MG/ML 1 ML SYRINGE IVP PRN (11:52)
--- NOTE | 2022-09-17 11:52 | P.OP ---
Date of Procedure: 09/17/22 Preoperative Diagnosis: History of perforated diverticulitis Postoperative Diagnosis: History of perforated diverticulitis Ventral hernia Procedure(s) Performed: Low anterior resection Repair of ventral hernia Anesthesia: RANDELL Surgeon: Anderson Gale Estimated Blood Loss (ml): 25 Pathology: other (Sigmoid colon) Condition: stable Disposition: PACU Description of Procedure: The patient's placed on the operative table in the supine position. He received general endotracheal tube anesthesia. He was then placed in dorsal lithotomy position. His abdomen was prepped and draped in sterile fashion. Through a low midline incision the peritoneal cavity is entered. There was a ventral hernia located above the umbilicus. There was incarcerated omentum within the hernia. The Bookwalter tract with wound. The area was explored. There was inflammation seen along the lower sigmoid colon. With blunt finger dissection the; was dissected free from the lateral pelvic wall. The colon appeared to be inflamed. There is evidence of a perforation of this area. At this point a window was made and; mesentery. A hemostat was a place to the window. An enterotomy was made on the sigmoid colon. In the interval for the 29 mm EEA stapler was placed proximal.; Was then transected. The enterotomy was then closed with 3-0 GI silk suture. Using the Enseal device the mesentery the bowel was divided. The rectum was then transected with the contour stapler. The anvil had been driven through the proximal staple line. The spike was removed. In the gift shop assistant placed the EEA stapler patient's rectum. The stapler was then positioned on the anterior rectal wall. Then the spike was driven through the anterior wall. The spike was withdrawn and then connected to the anvil. The stapler was then closed and fired. The naun removed. 2 intact tissue rings were found on the stapler. Using a hydrated the colon was occluded. And then the rectum was insufflated with air via a rigid sigmoid scope. There is no evidence of any leakage along the staple line. The abdomen was area there is no bleeding seen. The fascia was then closed in looped #1 PDS suture. The ventral hernia was closed. Fascial repair. Skin was closed table. Patient top she will was sent to recovery room stable condition.
[2022-09-17] MEDS: ROPIVACAINE 250 MG, HYDROMORPHONE (PF) 5 MG in SODIUM CHLORIDE 0.9% 200 ML EPIDURAL PRN (12:11)
[2022-09-17] MEDS ORDERED: fentaNYL (PF) 50 MCG/1 ML VIAL MISCELLANE ONE (12:35)
[2022-09-17 15:29] LABS: Basophils # (A) 0.1 k/uL (0-0.2); Basophils % (A) 0 %; Eosinophils # (A) 0.1 k/uL (0-0.7); Eosinophils % (A) 1 %; HGB 14.6 gm/dL (13.0-17.5); Lymphocytes # (A) 0.7 k/uL (1.0-4.8); Lymphocytes % (A) 3 %; MCH 29.8 pg (25.0-35.0); MCHC 33.1 g/dL (31.0-37.0); Mean Platelet Volume 8.2; Monocytes # (A) 0.9 k/uL (0-1.0); Monocytes % (A) 4 %; Neutrophils # (A) 21.2 k/uL (1.3-7.7); Neutrophils % (A) 92 %; Platelet Count 285 k/uL (150-450); RBC 4.89 m/uL (4.30-5.90); RDW 13.9 % (11.5-15.5)
[2022-09-17 15:38] LABS: African American GFR (CKD) >90 (>60 ml/min/1.73 sqM); Anion Gap 8 mmol/L; Blood Urea Nitrogen 7 mg/dL (9-20); Calcium 9.2 mg/dL (8.4-10.2); Carbon Dioxide 29 mmol/L (22-30); Chloride 103 mmol/L (98-107); Glucose 115 mg/dL (74-99); Non-African American GFR(CKD) >90 (>60 ml/min/1.73 sqM); Potassium 4.2 mmol/L (3.5-5.1); Sodium 140 mmol/L (137-145)
[2022-09-17] MEDS: HEPARIN SODIUM,PORCINE/PF 5,000 UNIT/0.5 ML SYRINGE SQ SCH (16:09)
[2022-09-17] MEDS: D5-0.45% NACL WITH KCL 20MEQ/L 1,000 ML IV SCH (20:35)
[2022-09-18] MEDS: HEPARIN SODIUM,PORCINE/PF 5,000 UNIT/0.5 ML SYRINGE SQ SCH ×4 (00:51→21:42)
[2022-09-18] MEDS: D5-0.45% NACL WITH KCL 20MEQ/L 1,000 ML IV SCH ×3 (01:41→14:23)
[2022-09-18] MEDS: LACTATED RINGERS 1,000 ML IV SCH (06:04)
--- NOTE | 2022-09-18 06:07 | P.PN ---
Progress Note - Text Date: 09/18/2022 Time: 05:58 The patient is status post, low anterior resection, postoperative day number 1. The patient has no complaints of nausea vomiting or headache. The patient does not complain of any lower extremity numbness or weakness. The epidural is running at 8 mL per hour. VAS 3-4-10. The epidural will be maintained and adjusted as needed.
[2022-09-18 08:16] LABS: Basophils % (A) 0 %; Eosinophils # (A) 0.1 k/uL (0-0.7); Eosinophils % (A) 1 %; HCT 39.5 % (39.0-53.0); Lymphocytes # (A) 2.3 k/uL (1.0-4.8); Lymphocytes % (A) 18 %; MCH 29.5 pg (25.0-35.0); MCHC 32.9 g/dL (31.0-37.0); MCV 89.5 fL (80.0-100.0); Mean Platelet Volume 8.9; Monocytes # (A) 1.1 k/uL (0-1.0); Monocytes % (A) 8 %; Neutrophils # (A) 9.4 k/uL (1.3-7.7); Neutrophils % (A) 71 %; Platelet Count 236 k/uL (150-450); RBC 4.41 m/uL (4.30-5.90); WBC 13.3 k/uL (3.8-10.6)
[2022-09-18] MEDS: ALVIMOPAN 12 MG CAPSULE PO SCH ×2 (08:20→21:42)
[2022-09-18 08:48] LABS: African American GFR (CKD) >90 (>60 ml/min/1.73 sqM); Anion Gap 6 mmol/L; Blood Urea Nitrogen 9 mg/dL (9-20); Calcium 8.4 mg/dL (8.4-10.2); Carbon Dioxide 27 mmol/L (22-30); Chloride 104 mmol/L (98-107); Glucose 116 mg/dL (74-99); Non-African American GFR(CKD) >90 (>60 ml/min/1.73 sqM); Potassium 3.9 mmol/L (3.5-5.1); Sodium 137 mmol/L (137-145)
--- NOTE | 2022-09-18 09:51 | P.CONS ---
History of Present Illness - Reason for Consult Consult date: 09/18/22 Medical management - Chief Complaint S/p low anterior resection. - History of Present Illness Patient is a 37-year-old male with a known history of perforated diverticulitis sometime in July 2022 was admitted to the hospital for elective low anterior resection. Patient underwent low anterior resection and also repair of ventral hernia. Patient tolerated the procedure very well. Currently pain is controlled with epidural injection. Denies any complaints of chest pain or shortness of breath. No nausea vomiting. Patient has not passed flatus. Afebrile. No nausea or vomiting. Laboratory data showed WBC 23.0 which is trending down today. Hemoglobin 14.6 and platelets 285 Sodium 140 potassium 4.2 chloride 103 bicarb is 29 BUN 7 and creatinine 0.86 and blood sugar is 115 Review of Systems Constitutional: Patient denies any fever or chills . no Generalized weakness. Abdomen: Patient denied any nausea or vomiting or abd. pain Cardiovascular: Patient denies any chest pain or short of breath no palpitations. Respiratory: patient denied any cough . no sputum production. No shortness of breath Neurologic: Patient denied any numbness or tingling headache. Musculoskeletal: Patient denies any complaints of joint swelling or deformity. Skin: Negative Psychiatric: Negative Endocrine: No heat or cold intolerance. No recent weight gain. Genitourinary: No dysuria or hematuria. All other 14 point ROS negative except the above Past Medical History Past Medical History: Hypertension Additional Past Medical History / Comment(s): DIVERTICULITIS History of Any Multi-Drug Resistant Organisms: None Reported Past Surgical History: Adenoidectomy, Tonsillectomy Past Anesthesia/Blood Transfusion Reactions: No Reported Reaction Past Psychological History: Anxiety Smoking Status: Current every day smoker Past Alcohol Use History: None Reported Additional Past Alcohol Use History / Comment(s): SMOKES 1 PPD SINCE AGE 15. LAST USED ALCOHOL 30 DAYS AGO Past Drug Use History: Marijuana Additional Drug Use History / Comment(s): USES MARIJUANA DAILY, last used 4 days ago - Past Family History Father Family Medical History: Cancer Medications and Allergies Home Medications Medication Instructions Recorded Confirmed Type No Known Home Medications 09/11/22 09/16/22 History Allergies Allergy/AdvReac Type Severity Reaction Status Date / Time No Known Allergies Allergy Verified 09/16/22 11:29 Physical Exam Vitals: Vital Signs Temp Pulse Pulse Resp BP Pulse Ox FiO2 09/18/22 08:24 92 L 21 09/18/22 08:15 18 09/18/22 07:11 98.1 F 82 17 111/68 92 L 09/18/22 02:00 98.9 F 81 16 118/65 92 L 09/17/22 19:42 99.3 F 89 18 123/78 90 L 09/17/22 15:00 16 09/17/22 14:52 97.7 F 62 16 133/82 94 L 09/17/22 13:30 63 16 139/65 98 09/17/22 13:15 62 12 146/90 97 09/17/22 13:00 56 L 12 146/91 100 09/17/22 12:45 59 L 12 155/95 100 09/17/22 12:30 61 12 157/110 100 09/17/22 12:15 56 L 12 166/100 99 09/17/22 12:00 58 L 12 143/101 99 09/17/22 11:41 97.2 F L 69 12 137/92 94 L 09/17/22 10:09 82 18 129/83 99 Intake and Output 09/17/22 09/18/22 09/18/22 22:59 06:59 14:59 Output Total 650 Balance -650 Output: Urine 650 Other: Voiding Method Indwelling Catheter Indwelling Catheter Weight 88.7 kg PHYSICAL EXAMINATION: Patient is lying in the bed comfortably, no acute distress, awake alert and oriented.. HEENT: Normocephalic. Neck is supple. Pupils reactive. Nostrils clear. Oral cavity is moist. Neck reveals no JVD, carotid bruits, or thyromegaly. CHEST EXAMINATION: Trachea is central. Symmetrical expansion. Lung clancy clear to auscultation and percussion. CARDIAC: Normal S1, S2 with no gallops. No murmurs ABDOMEN: Soft. Bowel sounds diminished. abdominal binder in place. No abdominal bruits. Extremities: reveal no edema. No clubbing or cyanosis Neurologically awake, alert, oriented x3 with well-coordinated movements. No focal deficits noted Skin: No rash or skin lesions. Psychiatric: Coperative. Nonsuicidal, Musculoskeletal: No joint swelling or deformity. Normal range of motion. Results CBC & Chem 7: 09/18/22 08:02 09/18/22 08:02 Labs: Abnormal Lab Results - Last 24 Hours (Table) 09/17/22 09/17/22 09/18/22 Range/Units 15:17 15:17 08:02 WBC 23.0 H 13.3 H (3.8-10.6) k/uL Neutrophils # 21.2 H 9.4 H (1.3-7.7) k/uL Lymphocytes # 0.7 L (1.0-4.8) k/uL Monocytes # 1.1 H (0-1.0) k/uL BUN 7 L (9-20) mg/dL Glucose 115 H (74-99) mg/dL 09/18/22 Range/Units 08:02 WBC (3.8-10.6) k/uL Neutrophils # (1.3-7.7) k/uL Lymphocytes # (1.0-4.8) k/uL Monocytes # (0-1.0) k/uL BUN (9-20) mg/dL Glucose 116 H (74-99) mg/dL Assessment and Plan Assessment: Perforated diverticulitis s/p low anterior resection and repair of ventral hernia. POD 1 Leukocytosis likely reactive. Trending down. DVT prophylaxis with heparin subcu Plan: Patient will be continued on IV hydration and pain management on epidural. Bowel regimen and increase incentive spirometry. Increase activity. Follow-up CBC and BMP. Replace electrolytes. Further recommendations based on the clinical course. We will continue to follow closely. Thank you for your consult.
--- NOTE | 2022-09-18 11:04 | P.PN ---
Subjective Progress Note Date: 09/18/22 CHIEF COMPLAINT: History of perforated diverticulitis HISTORY OF PRESENT ILLNESS: Patient is postop day #1 status post lower anterior resection and repair of ventral hernia for history of perforated diverticulitis. Patient reports his pain is controlled. He has epidural. He states that he has pain with cough. Denies any flatus. Denies any nausea or vomiting. Adequate urine output. Afebrile. WBC 23 down to 13.3 Hgb 13 platelets 236 PHYSICAL EXAM: VITAL SIGNS: Reviewed. GENERAL: Well-developed in no acute distress. HEENT: No sclera icterus. Extraocular movements grossly intact. Moist buccal mucosa. Head is atraumatic, normocephalic. ABDOMEN: Soft. Nondistended. Incisional dressing clean dry and intact NEUROLOGIC: Alert and oriented. Cranial nerves II through XII grossly intact. ASSESSMENT: 1. History of perforated diverticulitis status post lower anterior resection and repair of ventral hernia PLAN: -Continue epidural for pain control -Continue Lea catheter -Continue clear liquid diet -Continue IV fluids -Encouraged patient to use incentive spirometer -Encouraged patient to increase activity level -GI prophylaxis Pepcid and DVT prophylaxis subcu heparin Physician Optical Goods Drill Operator note has been reviewed by physician. Signing provider agrees with the documented findings, assessment, and plan of care. Objective - Vital Signs Vital signs: Vital Signs Temp 98.1 F 09/18/22 07:11 Pulse 82 09/18/22 07:11 Resp 18 09/18/22 08:15 BP 111/68 09/18/22 07:11 Pulse Ox 92 L 09/18/22 08:24 FiO2 21 09/18/22 08:24 Intake & Output 09/17/22 09/18/22 09/18/22 18:59 06:59 18:59 Intake Total 1250 Output Total 320 650 Balance 930 -650 Weight 88.7 kg Intake: IV 1250 Output: Urine 300 650 Estimated Blood Loss 20 Other: Voiding Method Indwelling Catheter Indwelling Catheter - Labs CBC & Chem 7: 09/18/22 08:02 09/18/22 08:02 Labs: Abnormal Lab Results - Last 24 Hours (Table) 09/17/22 09/17/22 09/18/22 Range/Units 15:17 15:17 08:02 WBC 23.0 H 13.3 H (3.8-10.6) k/uL Neutrophils # 21.2 H 9.4 H (1.3-7.7) k/uL Lymphocytes # 0.7 L (1.0-4.8) k/uL Monocytes # 1.1 H (0-1.0) k/uL BUN 7 L (9-20) mg/dL Glucose 115 H (74-99) mg/dL 09/18/22 Range/Units 08:02 WBC (3.8-10.6) k/uL Neutrophils # (1.3-7.7) k/uL Lymphocytes # (1.0-4.8) k/uL Monocytes # (0-1.0) k/uL BUN (9-20) mg/dL Glucose 116 H (74-99) mg/dL
[2022-09-18] MEDS: ROPIVACAINE 250 MG, HYDROMORPHONE (PF) 5 MG in SODIUM CHLORIDE 0.9% 200 ML EPIDURAL PRN (14:23)
[2022-09-18] MEDS: FAMOTIDINE 20 MG/2 ML VIAL IV SCH (14:23)
[2022-09-19] MEDS: FAMOTIDINE 20 MG/2 ML VIAL IV SCH ×3 (00:19→21:18)
[2022-09-19] MEDS: D5-0.45% NACL WITH KCL 20MEQ/L 1,000 ML IV SCH ×4 (00:19→21:18)
[2022-09-19] MEDS: LACTATED RINGERS 1,000 ML IV SCH (05:22)
--- NOTE | 2022-09-19 08:40 | P.PN ---
Progress Note - Text Progress Note Date: 09/19/22 (7227) Anesthesia Postop day #2 Status post low anterior resection with epidural day #3 Patient seen and examined. Doing well without complaint. VAS 0 out of 10. No nausea vomiting. Mild pruritustolerable. Ropivacaine 0.1% with Dilaudid 20 mcg/mL at 8 mL an hour. Objective: Vital signs reviewed Lungs: Good chest excursion Abdomen: Appears nondistended Other: Epidural Site Intact without induration. Dressing intact Neuro: No apparent motor block. Sensory within normal limits. Assessment: Status post low anterior resection postop day #2 Plan: Continue current care with your medical management. Anticipate discontinued catheter tomorrow.
[2022-09-19] MEDS: ALVIMOPAN 12 MG CAPSULE PO SCH ×2 (08:51→21:18)
[2022-09-19] MEDS: HEPARIN SODIUM,PORCINE/PF 5,000 UNIT/0.5 ML SYRINGE SQ SCH ×3 (08:51→21:18)
[2022-09-19 10:50] LABS: HCT 40.9 % (39.6-50.0); HGB 13.1 g/dL (13.0-17.0); MCH 29.2 pg (27.0-32.0); MCV 91.3 fL (80.0-97.0); Mean Platelet Volume 10.9 fL (9.5-12.2); NRBC Per 100 WBC 0 /100 WBCS (0.0-0.0); Platelet Count 242 X 10*3/uL (140-440); RBC 4.48 X 10*6/uL (4.40-5.60); RDW 14.1 % (11.5-14.5); WBC 13.93 X 10*3/uL (4.50-10.00)
[2022-09-19 12:24] LABS: Basophils # (A) 0.07 X 10*3/uL (0.00-0.10); Basophils % (A) 0.5 %; Eosinophils # (A) 0.24 X 10*3/uL (0.04-0.35); Eosinophils % (A) 1.7 %; Immature Grans, Automated 0.3 %; Lymphocytes # (A) 1.39 X 10*3/uL (0.90-5.00); Monocytes # (A) 1.74 X 10*3/uL (0.20-1.00); Monocytes % (A) 12.5 %; Neutrophils # (A) 10.45 X 10*3/uL (1.80-7.70)
--- NOTE | 2022-09-19 13:46 | P.PN ---
Subjective Progress Note Date: 09/19/22 CHIEF COMPLAINT: History of perforated diverticulitis HISTORY OF PRESENT ILLNESS: Patient is postop day #2 status post lower anterior resection and repair of ventral hernia for history of perforated diverticulitis. Patient reports his pain is controlled. He has epidural. He is sitting in bedside chair. He denies any nausea or vomiting. Denies any bowel activity. He did have a low-grade temp 99.7 last night. WBC 13.93 hgb 13 Patient seen and examined with Dr. Gale PHYSICAL EXAM: VITAL SIGNS: Reviewed. GENERAL: Well-developed in no acute distress. ABDOMEN: Soft. Nondistended. Incision site clean dry and intact ASSESSMENT: 1. History of perforated diverticulitis status post lower anterior resection and repair of ventral hernia PLAN: -Changes incisional dressing to Optifoam -Continue epidural for pain control -Continue Lea catheter -Continue clear liquid diet -Continue IV fluids -Encouraged patient to use incentive spirometer -Encouraged patient to increase activity level -GI prophylaxis Pepcid and DVT prophylaxis subcu heparin Physician Card Feeder note has been reviewed by physician. Signing provider agrees with the documented findings, assessment, and plan of care. Objective - Vital Signs Vital signs: Vital Signs Temp 99.6 F 09/19/22 07:08 Pulse 95 09/19/22 07:08 Resp 18 09/19/22 07:08 BP 113/75 09/19/22 07:08 Pulse Ox 94 L 09/19/22 09:08 FiO2 21 09/19/22 09:08 Intake & Output 09/18/22 09/19/22 09/19/22 18:59 06:59 18:59 Intake Total 1596 Output Total 1200 1600 Balance -1200 -4 Intake: Intake, IV Titration 1596 Amount D5-0.45% NaCl with KCl 1500 20Meq/l 1,000 ml @ 125 mls/hr IV .Q8H JUVE Rx#: [id number] Ropivacaine 250 mg 96 Hydromorphone (Pf) 5 mg In Sodium Chloride 0.9% 200 ml @ Per Protocol EPIDURAL .Q0M PRN Rx#: [id number] Output: Urine 1200 1600 Other: Voiding Method Indwelling Catheter Indwelling Catheter Indwelling Catheter - Labs CBC & Chem 7: 09/19/22 08:01 09/18/22 08:02 Labs: Abnormal Lab Results - Last 24 Hours (Table) 09/19/22 Range/Units 08:01 WBC 13.93 H (4.50-10.00) X 10*3/uL Neutrophils # 10.45 H (1.80-7.70) X 10*3/uL Monocytes # 1.74 H (0.20-1.00) X 10*3/uL
[2022-09-19] MEDS: ROPIVACAINE 250 MG, HYDROMORPHONE (PF) 5 MG in SODIUM CHLORIDE 0.9% 200 ML EPIDURAL PRN (16:16)
[2022-09-19] MEDS: ONDANSETRON 4 MG/2 ML VIAL IVP PRN (19:10)
[2022-09-20] MEDS: D5-0.45% NACL WITH KCL 20MEQ/L 1,000 ML IV SCH ×2 (06:11→15:36)
[2022-09-20] MEDS: LACTATED RINGERS 1,000 ML IV SCH (08:32)
--- NOTE | 2022-09-20 10:05 | P.PN ---
Progress Note - Text Progress Note Date: 09/20/22 Patient feels better. He's had some flatus. On exam vital signs are stable. Abdomen soft. Incisions clean dry intact. Status post low anterior resection for diverticular is. Patient will have his diet advanced to full liquids.
[2022-09-20 10:48] LABS: Basophils # (A) 0.06 X 10*3/uL (0.00-0.10); Basophils % (A) 0.6 %; Eosinophils # (A) 0.25 X 10*3/uL (0.04-0.35); Eosinophils % (A) 2.6 %; HCT 36.6 % (39.6-50.0); Immature Grans, Automated 0.2 %; Lymphocytes % (A) 20.8 %; MCH 29.6 pg (27.0-32.0); MCHC 32.8 g/dL (32.0-37.0); MCV 90.1 fL (80.0-97.0); Mean Platelet Volume 11.2 fL (9.5-12.2); Monocytes # (A) 1.21 X 10*3/uL (0.20-1.00); Monocytes % (A) 12.6 %; NRBC Per 100 WBC 0 /100 WBCS (0.0-0.0); Neutrophils # (A) 6.08 X 10*3/uL (1.80-7.70); Neutrophils % (A) 63.2 %; Platelet Count 220 X 10*3/uL (140-440); RBC 4.06 X 10*6/uL (4.40-5.60); RDW 13.6 % (11.5-14.5); WBC 9.62 X 10*3/uL (4.50-10.00)
[2022-09-20] MEDS ORDERED: HYDROcodone/APAP 5-325MG 1 EACH TAB PO PRN (11:46)
[2022-09-20] MEDS: AMPICILLIN-SULBACTAM 3 GM in SODIUM CHLORIDE 0.9% 100 ML IVPB SCH ×2 (11:52→17:36)
[2022-09-20] MEDS: FAMOTIDINE 20 MG/2 ML VIAL IV SCH ×2 (11:53→21:17)
[2022-09-20] MEDS: HEPARIN SODIUM,PORCINE/PF 5,000 UNIT/0.5 ML SYRINGE SQ SCH ×3 (11:53→21:17)
[2022-09-20] MEDS: ALVIMOPAN 12 MG CAPSULE PO SCH ×2 (11:53→21:17)
[2022-09-20] MEDS: NICOTINE 21MG/24HR PATCH TRANSDERM SCH (12:07)
[2022-09-20] MEDS: ONDANSETRON 4 MG/2 ML VIAL IVP PRN (12:08)
--- NOTE | 2022-09-20 12:30 | P.PN ---
Progress Note - Text 09/20/22 37-year-old male status post low anterior resection. Patient has an epidural catheter with the solution running at 3 mL an hour. Patient has a VAS of 6 to no motor or sensory. Plan to DC epidural
[2022-09-20 12:56] VITALS: BMI 27.2
[2022-09-20] MEDS: HYDROcodone/APAP 7.5-325MG 1 EACH TAB PO PRN (17:45)
[2022-09-21] MEDS: AMPICILLIN-SULBACTAM 3 GM in SODIUM CHLORIDE 0.9% 100 ML IVPB SCH ×4 (00:19→23:15)
[2022-09-21] MEDS: D5-0.45% NACL WITH KCL 20MEQ/L 1,000 ML IV SCH ×4 (00:19→20:30)
[2022-09-21] MEDS: HYDROcodone/APAP 7.5-325MG 1 EACH TAB PO PRN ×3 (05:56→20:29)
[2022-09-21] MEDS: FAMOTIDINE 20 MG/2 ML VIAL IV SCH ×2 (08:20→20:29)
[2022-09-21] MEDS: ALVIMOPAN 12 MG CAPSULE PO SCH ×2 (08:40→20:23)
[2022-09-21] MEDS: HEPARIN SODIUM,PORCINE/PF 5,000 UNIT/0.5 ML SYRINGE SQ SCH ×3 (08:40→23:15)
[2022-09-21] MEDS: NICOTINE 21MG/24HR PATCH TRANSDERM SCH (08:41)
--- NOTE | 2022-09-21 09:56 | P.PN ---
Progress Note - Text Progress Note Date: 09/21/22 Patient feels better. He's had some flatus. He has not had a bowel movement On exam vitals are stable. Abdomen soft. Incisions clean dry intact. Patient will remain on full liquid diet. We will advance his diet" bowel function has improved.
[2022-09-21] MEDS: LACTATED RINGERS 1,000 ML IV SCH (19:50)
[2022-09-22] MEDS: D5-0.45% NACL WITH KCL 20MEQ/L 1,000 ML IV SCH (04:53)
[2022-09-22] MEDS: LACTATED RINGERS 1,000 ML IV SCH (04:54)
[2022-09-22] MEDS: AMPICILLIN-SULBACTAM 3 GM in SODIUM CHLORIDE 0.9% 100 ML IVPB SCH (07:30)
[2022-09-22] MEDS: HEPARIN SODIUM,PORCINE/PF 5,000 UNIT/0.5 ML SYRINGE SQ SCH (07:30)
[2022-09-22] MEDS: NICOTINE 21MG/24HR PATCH TRANSDERM SCH (07:32)
[2022-09-22] MEDS: FAMOTIDINE 20 MG/2 ML VIAL IV SCH (08:21)
[2022-09-22 09:19] VITALS: BP 120/68; PULSE 77; RESP 17; TEMP 99.1
--- NOTE | 2022-09-22 10:37 | P.DS ---
Providers Date of admission: 09/17/22 08:28 Expected date of discharge: 09/22/22 Attending physician: Anderson Gale Consults: 09/17/22 11:52 Consult Physician Routine Consulting Provider: Sarah Young Consult Reason/Comments: Medical management Do you want consulting provider notified?: Yes Primary care physician: Stated None Hospital Course: This a 29-year-old male who underwent low anterior resection for diverticulitis. Patient's postoperative unremarkable. Procedures: Low anterior resection Patient Condition at Discharge: Good Plan - Discharge Summary Discharge Rx Participant: Yes New Discharge Prescriptions: New Docusate [Colace] 100 mg PO BID #20 capsule Ibuprofen [Motrin] 600 mg PO Q6HR PRN #40 tab PRN Reason: Pain Acetaminophen Tab [Tylenol] 650 mg PO Q6H #30 tab oxyCODONE HCL [OxyIR] 5 mg PO Q6H PRN 3 Days #10 tab PRN Reason: Pain Discharge Medication List Acetaminophen Tab [Tylenol] 650 mg PO Q6H #30 tab 09/22/22 [Rx] Docusate [Colace] 100 mg PO BID #20 capsule 09/22/22 [Rx] Ibuprofen [Motrin] 600 mg PO Q6HR PRN #40 tab 09/22/22 [Rx] oxyCODONE HCL [OxyIR] 5 mg PO Q6H PRN 3 Days #10 tab 09/22/22 [Rx] Follow up Appointment(s)/Referral(s): Anderson Gale MD [STAFF PHYSICIAN] - 1 Week Discharge Disposition: HOME SELF-CARE
[2022-09-22] MEDS: HYDROcodone/APAP 7.5-325MG 1 EACH TAB PO PRN (11:03)
--- NOTE | 2022-09-26 14:26 | CDI ---
Documentation Clarification Form Date: 09/26/22 From: Emilee Gama Admit Date: 09/17/2022 08:28:00 AM Patient Name: Mihir Jones Visit Number: [id number] Discharge Date: 09/22/2022 12:20:00 PM ATTENTION: The Clinical Documentation Specialists (CDI) and [facility] Coding Staff appreciate your assistance in clarifying documentation. Please respond to the clarification below the line at the bottom and electronically sign. The CDI & [facility] Coding staff will review the response and follow-up if needed. Please note: Queries are made part of the Legal Health Record. If you have any questions, please contact the author of this message via ITS. Dr. Anderson Gale, The final diagnosis of the pathology report states Sigmoid colon, low anterior resection:Diverticulosiswith subserosalabscess,fibrosis, fat necrosis, histocytes andforeign bodygiant cellreactionto fecal material consistent with diverticularruptureandperforation . Coding guidelines do not allow coding professionals to code based on pathology results; therefore, clarification is requested. History/risk factors: HTN, Anxiety & Diverticulitis Clinical Indicators: Is a 29-year-old male with previous history ofperforated diverticulitis. Treatment: 09/17 Procedure Note; Low anteriorresection Please clarify if you agree with the pathology report diagnosis of: Diverticulitis of intestine, part unspecified, with perforation and abscess without bleeding. [ xx ] Yes [ ] No [ ] Other (please specify) [ ] Unable to determine MTDD
== END 2022-09-22 12:20 | disposition home or self-care (01) | DRG 231 ==
LOC: 2ORMAIN 08:28 → 4SSUR 12:39
PROVIDERS: ADMIT Surgery; ATTEND Surgery
PROC: 0DJD8ZZ Inspection of Lower Intestinal Tract, Via Natural or Artificial Opening Endoscopic (ICD-10-PCS; 2022-09-17)
PROC: 0WQF0ZZ Repair Abdominal Wall, Open Approach (ICD-10-PCS; principal; 2022-09-17 10:25)
PROC: 0DBN0ZZ Excision of Sigmoid Colon, Open Approach (ICD-10-PCS; principal; 2022-09-17 10:25)
DX: K57.80 Diverticulitis of intestine, part unspecified, with perforation and abscess without bleeding (principal); K43.9 Ventral hernia without obstruction or gangrene; F12.90 Cannabis use, unspecified, uncomplicated; F17.210 Nicotine dependence, cigarettes, uncomplicated; Z28.310 Unvaccinated for COVID-19; I10 Essential (primary) hypertension; L29.9 Pruritus, unspecified; F41.9 Anxiety disorder, unspecified; Z71.6 Tobacco abuse counseling
CPT/HCPCS: 80048; 85025; 86850; 86900; 86901; 88307; 94760